=== PATIENT | female | born 1955 | race Caucasian/White ===

== ENCOUNTER 2022-03-12 09:27 | Outpatient (CLI) | payer MEDICARE, SELFPAY ==
--- NOTE | ~2022-03-12 | MM_ITS ---
EXAMINATION: MM screening kev BI w michelle HISTORY: Screening mammogram TECHNIQUE: Craniocaudal and mediolateral oblique 3-D tomosynthesis images were obtained and synthetic 2-D images were generated. CAD analysis was submitted and interpreted. COMPARISON: No prior mammogram is available for comparison at this institution. BREAST PARENCHYMAL COMPOSITION: There are scattered areas of fibroglandular density. FINDINGS: RIGHT BREAST: There is no suspicious mass, calcification, or architectural distortion to suggest jelly gnancy. LEFT BREAST: There is a possible mass in the middle third of the lower-outer breast. IMPRESSION: 1. Possible left breast mass which may represent the patient's baseline however no comparison is curr ently available. 2. Comparison with prior mammograms is necessary. BI-RADS Category 0: Incomplete: Needs comparison with prior mammograms. Reviewed, dictated and finalized at location A. IMPRESSION: 1. Possible left breast mass which may represent the patient's baseline however no comparison is currently available. 2. Comparison with prior mammograms is necessary. BI-RADS Category 0: Incomplete: Needs comparison with prior mammograms.
== END 2022-03-12 09:28 | disposition home or self-care (01) ==
DX: Z12.31 Encounter for screening mammogram for malignant neoplasm of breast (principal); R92.8 Other abnormal and inconclusive findings on diagnostic imaging of breast
CPT/HCPCS: 77063; 77067

== ENCOUNTER 2022-04-17 11:40 | Outpatient (CLI) | payer MEDICARE, SELFPAY ==
--- NOTE | ~2022-04-17 | MMUS_ITS ---
EXAMINATION: MM diagnostic kev LT w michelle, US breast LT limited HISTORY: Possible left breast mass reported in middle third of lower outer left breast on 03/12/2022 s creening mammogram TECHNIQUE: Additional 3-D tomosynthesis images of the left breast were performed and synthetic 2-D im ages were generated. CAD analysis was submitted and interpreted. High resolution left lower outer lisa drant breast ultrasound was performed. COMPARISON: None FINDINGS: MAMMOGRAPHIC FINDINGS: There is an approximately 5 x 9 mm circumscribed opacity in the lower outer quadrant of the left sabrina st in the junction of the anterior and middle thirds of the breast. Otherwise no suspicious mammographic mass, architectural distortion, malignant constipation, skin thi ckening or retraction is detected. ULTRASOUND: 4:00 7 cm from nipple: Parallel circumscribed sonolucency measuring up to approximately 7 mm, consist ent with simple cyst., Likely corresponding to the circumscribed tomographic opacity in the lower out er quadrant 5:00 5 cm from nipple: Parallel circumscribed sonolucency measuring 1.9 x 4 mm. With through transmis dilia, consistent with small cyst. IMPRESSION: 1. Benign cysts; no mammographic evidence of malignancy 2. Routine mammographic screening is recommended. BI-RADS Category 2: Benign finding(s). Reviewed, dictated and finalized at location A. IMPRESSION: 1. Benign cysts; no mammographic evidence of malignancy 2. Routine mammographic screening is recommended. BI-RADS Category 2: Benign finding(s).
== END 2022-04-17 11:41 | disposition home or self-care (01) ==
DX: R92.8 Other abnormal and inconclusive findings on diagnostic imaging of breast (principal); N60.02 Solitary cyst of left breast
CPT/HCPCS: 76642; 77061; 77065; G0279

== ENCOUNTER 2022-07-14 08:02 | Emergency (ER) | payer MEDICARE, SELFPAY ==
[2022-07-14] VITALS (7 sets, daily range): BP systolic 139–163; BP diastolic 58–101; PULSE 64–74; RESP 16–19; TEMP 36.8; O2SAT 97–99
--- NOTE | ~2022-07-14 | CT_ITS ---
EXAMINATION: CT brain wo con DATE: 07/14/2022 08:33 INDICATION: Vertigo. TECHNIQUE: Computed tomography (CT) of the head was performed without intravenous contrast. The mA wa s adjusted according to patient size. Iterative reconstruction technique was employed. The dose-lengt h product was 908.00 mGy-cm. COMPARISON: None FINDINGS: There is no intracranial hemorrhage, acute infarction, or abnormal intracranial mass lesion . The ventricles are normal in size. The orbits are normal. There is mild mucosal thickening in the p aranasal sinuses. The mastoid air cells are normal. IMPRESSION: 1. Normal brain. Reviewed, dictated and finalized at location A. D PERSON IMPRESSION: 1. Normal brain.
--- NOTE | 2022-07-14 08:11 | ECG_ITS ---
Measurements Intervals [place] Rate: 70 P: 57 MN: 187 QRS: -26 QRSD: 144 T: 58 QT: 401 QTc: 433 Interpretive Statements SINUS RHYTHM LEFT BUNDLE BRANCH BLOCK ABNORMAL ECG ] NO PREVIOUS ECG AVAILABLE FOR COMPARISON Electronically Signed On 07-14-2022 15:05:00 FIRE PREVENTION OFFICER by Deni Baugh M.D.
--- NOTE | 2022-07-14 08:13 | ED.DIZZY ---
HPI - Dizziness General Chief Complaint: Dizziness Stated Complaint: vertigo/busby Time Seen by Provider: 07/14/22 08:06 History of Present Illness HPI Narrative: 66-year-old female presenting to the emergency department for evaluation of vertigo. Patient says she woke up this morning she had vertigo from 530 till 630. Patient states the vertigo has resolved. Patient was also concerned she may be having mini strokes because she has been more irate with her . Patient states when her sister is having strokes and she was mean to her . Patient is a type II diabetic. Patient reports she does have some history of vertigo but not recently. Related Data Allergies Allergy/AdvReac Type Severity Reaction Status Date / Time propoxyphene Allergy Unknown Verified 07/14/22 08:21 [From LeighannRadha] Review of Systems Review of Systems: CONSTITUTIONAL: Denies fever, chills, or sweats. EYES: Denies visual changes, redness, or discharge. ENT: Denies rhinorrhea, congestion, sore throat, or otalgia. CARDIOVASCULAR: Denies chest pain, palpitations, or edema. RESPIRATORY: Denies cough or dyspnea. GASTROINTESTINAL: Denies abdominal pain, nausea, vomiting, or diarrhea. GENITOURINARY: Denies dysuria or hematuria. SKIN: Denies rash or itching. MUSCULOSKELETAL: Denies back pain, joint pain, or myalgia. NEUROLOGIC: Denies headache, numbness, or weakness. Does have vertigo Exam Narrative: APPEARANCE: Well appearing, no pain, no distress, well-nourished. HEAD: normocephalic, atraumatic. EYES: PERRLA/EOMI, conjunctivae clear. NOSE: Normal no drainage EARS:TMS clear with good light reflex. THROAT: Pharynx clear, no exudate. NECK: Supple. No adenopathy, no masses. RESPIRATORY: Airway patent, respirations nonlabored. Clear to auscultation bilaterally, no rales, rhonchi, wheezing. CARDIOVASCULAR: Regular rate and rhythm without murmurs rubs or gallops. ABDOMINAL: Soft, nontender, nondistended, normal bowel sounds MUSCULOSKELETAL: Moves all extremities. Strength/ROM intact, No edema, No calf tenderness. NEURO: Alert. Cranial nerves II through XII intact. Grossly intact SKIN: Warm, dry. Normal Color Course Course Emergency Course: Head CT was negative for acute abnormality. Patient did feel improved with meclizine. Patient has a normal comprehensive neuro exam. Patient had no vertigo while ambulating. Patient had no evidence of urinary tract infection. Patient's COVID and influenza were also negative. Patient was updated on the results of her diagnosis of vertigo and was provided meclizine for outpatient treatment. Patient was also suggested to have neurology follow-up. All questions and concerns were addressed. Vital Signs Vital signs: Vital Signs Temperature 98.2 F 07/14/22 08:11 Pulse Rate 74 07/14/22 08:11 Respiratory Rate 18 07/14/22 08:11 Blood Pressure 163/101 H 07/14/22 08:11 Pulse Oximetry 99 07/14/22 08:11 Oxygen Delivery Room Air 07/14/22 08:11 Temperature 98.2 F 07/14/22 08:11 Pulse Rate 64 07/14/22 11:15 Respiratory Rate 19 07/14/22 11:15 Blood Pressure 154/58 H 07/14/22 11:15 Pulse Oximetry 99 07/14/22 11:15 Oxygen Delivery Room Air 07/14/22 08:11 MDM - Dizziness Lab Data 07/14/22 08:20 07/14/22 08:20 Labs: Lab Results 07/14/22 07/14/22 07/14/22 Range/Units 08:20 08:20 08:20 WBC 8.2 (4.5-10.0) K/mm3 RBC 5.39 (4.2-5.4) M/mm3 Hgb 15.5 H (12.0-15.0) g/dL Hct 46.3 (37.0-47.0) % MCV 85.9 (80-100) fl MCH 28.8 (26-34) pg MCHC 33.5 (32-36) g/dl RDW 14.1 (11.5-14.5) % Plt Count 266 (150-375) k/mm3 MPV 9.3 (7.4-10.4) fl Immature Gran % (Auto) 0.4 (0-0.5) % Neut % (Auto) 65.6 (45.5-73.1) % Lymph % (Auto) 26.6 (18.3-44.2) % [place] % (Auto) 5.9 (2.6-8.5) % Eos % (Auto) 0.9 (0-4.4) % Baso % (Auto) 0.6 (0.2-1.2) % Lymph # (Auto) 2.18 (0.9-3.2) K/mm3 [place] # (Au
[2022-07-14 08:27] LABS: Basophils Absolute Auto 0.1 K/mm3 (0.0-0.1); Basophils Percent Auto 0.6 % (0.2-1.2); Eosinophils Absolute Auto 0.1 K/mm3 (0-0.3); Eosinophils Percent Auto 0.9 % (0-4.4); Hematocrit 46.3 % (37.0-47.0); Hemoglobin 15.5 g/dL (12.0-15.0); Immature Granulocyte Absolute 0.03 K/mm3 (0.00-0.031); Immature Granulocyte Percent A 0.4 % (0-0.5); Lymphocytes Absolute Auto 2.18 K/mm3 (0.9-3.2); Lymphocytes Percent Auto 26.6 % (18.3-44.2); Mean Corpuscular HGB Conc 33.5 g/dl (32-36); Mean Corpuscular Hemoglobin 28.8 pg (26-34); Mean Corpuscular Volume 85.9 fl (80-100); Mean Platelet Volume 9.3 fl (7.4-10.4); Monocytes Absolute Auto 0.5 K/mm3 (0.1-0.6); Monocytes Percent Auto 5.9 % (2.6-8.5); Neutrophils Absolute Auto 5.4 K/mm3 (1.3-6.7); Neutrophils Percent Auto 65.6 % (45.5-73.1); Platelet Count Result 266 k/mm3 (150-375); Red Blood Count 5.39 M/mm3 (4.2-5.4); Red Cell Distribution Width 14.1 % (11.5-14.5); White Blood Count 8.2 K/mm3 (4.5-10.0)
[2022-07-14 08:36] LABS: Alanine Aminotransferase 28 U/L (6-35); Albumin Level 4.8 g/dL (3.5-5.1); Alkaline Phosphatase 90 U/L (38-126); Anion Gap 8 mmol/L (8-16); Aspartate Amino Transferase 22 U/L (14-36); Bilirubin,Total 0.4 mg/dL (0.2-1.3); Blood Urea Nitrogen 13 mg/dL (7-17); Calcium 9.4 mg/dL (8.4-10.2); Carbon Dioxide 29 mmol/L (22-30); Chloride 105 mmol/L (98-107); Estimated CRCL calculation 105 ml/min; Estimated Glomerular Filt Rate > 60; Glucose 148 mg/dL (65-110); Sodium 142 mmol/L (137-145)
[2022-07-14 08:39] LABS: Partial Thromboplastin Time 29.2 SECONDS (22.3-36.8)
[2022-07-14 09:04] LABS: Influenza A QL RT-PCR Negative (Negative); Influenza B QL RT-PCR Negative (Negative); SARS-CoV-2 RNA PCR Negative
[2022-07-14 10:22] LABS: Appearance Urine Clear (Clear); Bilirubin Urine Negative (Negative); Blood Urine Trace-intact (Negative); Color Urine Yellow (Yellow); Glucose Urine UA 3+ mg/dL (Negative); Ketones Urine Trace mg/dL (Negative); Leukocyte Esterase Ur Negative LEU/UL (Negative); Nitrate Urine Negative (Negative); Protein Urine Negative (Negative); Urobilinogen Urine 0.2 mg/dL (<2.0); pH Urine 5.5 (5.0-9.0)
[2022-07-14 10:37] LABS: Bacteria Urine Trace /hpf; Mucus Urine Rare /lpf; RBC Urine 0-2 /hpf (0-2); Squamous Epithelial Cell Urine Moderate /hpf (Few); Transitional Epi Cells Urine Rare /hpf (None Seen)
[2022-07-14 10:38] LABS: Add Urine Microscopic? YES
[2022-07-14] MEDS: MECLIZINE HCL 25 MG TABLET PO (10:42)
== END 2022-07-14 11:18 | disposition home or self-care (01) ==
PROVIDERS: Emergency Provider Emergency Medicine
DX: H81.10 Benign paroxysmal vertigo, unspecified ear (principal); E11.9 Type 2 diabetes mellitus without complications; Z20.822 Contact with and (suspected) exposure to COVID-19; R82.998 Other abnormal findings in urine; I44.7 Left bundle-branch block, unspecified
CPT/HCPCS: 36415; 70450; 80053; 81001; 85025; 85610; 85730; 87086; 87088; 87636; 93005; 99284; A9270

== ENCOUNTER → 2022-12-23 09:04 | Outpatient (CLI) | payer MEDICARE, SELFPAY ==
--- NOTE | ~2022-12-23 | MR_ITS ---
EXAMINATION: MR brain/brain stem wo con DATE: 12/23/2022 10:03 INDICATION: Lightheadedness. Dizziness. TECHNIQUE: Magnetic resonance imaging (MRI) of the brain and brainstem was performed without intraven ous contrast. COMPARISON: Head CT 07/14/2022 FINDINGS: There are scattered areas of nonspecific increased T2-weighted signal intensity in the cere bral white matter, which is within normal limits for the patient's age. There is no intracranial hemo rrhage, acute infarction, or abnormal intracranial mass lesion. The ventricles are normal in size. Th e paranasal sinuses are clear. The orbits are normal. The mastoid air cells are normal. IMPRESSION: 1. Normal aging brain. Reviewed, dictated and finalized at location A. IMPRESSION: 1. Normal aging brain.
--- NOTE | ~2022-12-23 | CT_ITS ---
EXAMINATION: CTA brain carotid DATE: 12/23/2022 10:05 INDICATION: Lightheadedness. Dizziness. Syncope. TECHNIQUE: Computed tomographic angiography (CTA) of the head was performed without and with 100 mL O mnipaque-350 intravenous contrast. CTA of the neck was performed with intravenous contrast. Automated exposure control and iterative reconstruction technique were employed. The dose-length product was 1 659.26 mGy-cm. Maximum intensity projection and volume rendered 3D-reconstructions were created by jung vaughn technologist on a separate workstation. COMPARISON: Head CT 07/14/2022, brain MRI 12/23/2022 FINDINGS: HEAD CTA: There is no intracranial hemorrhage, acute infarction, or abnormal intracranial mass lesion . The ventricles are normal in size. The mastoid air cells are normal. The paranasal sinuses are patricio r. The orbits are normal. The vertebral arteries are codominant. There is no significant stenosis of basilar artery or the posterior cerebral arteries. There is no significant stenosis of the intracrani al internal carotid arteries or anterior or middle cerebral arteries. Anterior communicating artery i s normal. The posterior communicating arteries are normal. There is no aneurysm. NECK CTA: There are no pathologically enlarged lymph nodes. There is no significant stenosis of the v ertebral arteries. There is mild plaque in the proximal internal carotid arteries. There is 0% stenos is of the proximal right internal carotid artery relative to normal distal artery lumen diameter (NANCY CET criteria). There is 0% stenosis of the proximal left internal carotid artery relative to normal d istal artery lumen diameter. There is mild cervical spondylosis. IMPRESSION: 1. Normal brain. 2. No aneurysm or significant intracranial arterial stenosis. 3. 0% stenosis of the proximal internal carotid arteries relative to normal distal artery lumen diame ters (NASCET criteria). Reviewed, dictated and finalized at location A. IMPRESSION: 1. Normal brain. 2. No aneurysm or significant intracranial arterial stenosis. 3. 0% stenosis of the proximal internal carotid arteries relative to normal dis macho artery lumen diameters (NASCET criteria).
[2022-12-23 09:28] LABS: Estimated Glomerular Filt Rate > 60
== END ==
PROVIDERS: PCP Student in an Organized Health Care Education/Training Program; Visit Provider Student in an Organized Health Care Education/Training Program
DX: R42 Dizziness and giddiness (principal)
CPT/HCPCS: 70496; 70498; 70551; Q9967

== ENCOUNTER 2023-01-21 10:15 | Outpatient (RCR) | payer MEDICARE, SELFPAY ==
--- NOTE | 2022-12-22 14:46 | PTOPEVAL1 ---
Assessment and note entered by Carolin Estrada, PT Evaluation Information Assessment Status Evaluation Diagnosis vertigo Onset Jul 2022 Subjective Information to ER Jul due to dizziness- brain CT negative; saw neurologist- going to have MRI of head and neck; going to make appointment with wick and base assembler; saw ENT- have flonase for allergies; took meclazine- did not help, just made her sleepy; adding salt to her diet has not changed anything. no changes in meds except added sertraline; she checks her blood sugar every AM; wear contacts - does OK with reading and watching TV; vitals at rest/ sitting: HR 110/ BP 121/49; later in appt: 140/87, 84 symptoms: spinning, eyes crossing, fullness of both ears increase symptoms with: sit to stand quickly; decrease symptom: hold still/ sit still Have not had any falls in the past 6 months. Reported Pain Level Pain Score 0: Self Report Assessment PT Clinical Summary Verenice has the diagnosis of vestibular rehab/ BPPV. She has multiple risk factors for vestibular issues: nasal congestion/allergies, diabetes, multiple meds. She went to ER July due to waking up with dizziness. Testing so far has been negative: hearing, CT brain; has been to ENT, neurologist and needs to schedule with cardiology. With the testing: Innis Rajput pike to the R, sitting eye tracking up/down and gaze stabilization with head motions R/L caused her slight dizziness. No nystagmus was elicited. There was some variance with her HR and BP: 121/49, 110 and later 140/87, 84. Education provided to pt on: basic vestibular system, BPPV, causes of dizziness with handouts issued. Skilled PT services are indicated for vestibular rehab. Plan of Care Interventions Neuro Re-education,Patient/Caregiver Education, Therapeutic Activities,Therapeutic Exercise PT Services Indicated Yes Treatment Frequency and 1-2x/wk for 5 weeks, depending upon her symptoms Duration
--- NOTE | 2022-12-22 14:47 | PCPTNOTE ---
pt was 15 minutes late for initial evaluation, went to wrong place.
--- NOTE | 2022-12-22 16:37 | OPREHPOC ---
Outpatient Therapy Plan of Care This is a Multidisciplinary Plan of Care that may contain components documented by all disciplines (PT, OT, and ST.) PT Problem 1 PT Problem #1 Knowledge Deficit PT Goal 1 Goal pt able to state safety precautions to manage any vestibular s/s PT Problem 2 PT Problem #2 Impaired Vestibular Syste PT Goal 1 Goal pt able to perform without any vestibular symptoms : 1* sit to stand transfer 2* standing eye tracking 20x up/down 3* standing gaze stabilization 20x, with head motion R/L 4* further assessment of the vestibular system as indicated
--- NOTE | 2023-02-02 13:03 | PTOPDC ---
Assessment and note entered by Carolin Estrada, PT Evaluation Information Assessment Status Discharge - Pt Not Present Diagnosis vertigo Onset Jul 2022 Assessment PT Clinical Summary Verenice has received 4 PT sessions, from December 22 to January 21. She then stopped attending therapy, therefore she will be discharged at this time. The goals were not addressed. Plan of Care PT Services Indicated No
== END 2023-02-04 12:09 | disposition home or self-care (01) ==
LOC: ANHPT 10:15
PROVIDERS: Visit Provider Otolaryngology
DX: H81.10 Benign paroxysmal vertigo, unspecified ear (principal)
CPT/HCPCS: 97110; 97162; 97530

== ENCOUNTER 2023-04-11 20:00 | Inpatient (IN) | payer MEDICARE, SELFPAY ==
[2023-04-11] VITALS (14 sets, daily range): BP systolic 107–183; BP diastolic 42–108; PULSE 29–82; RESP 12–23; TEMP 36.5–36.9; O2SAT 95–99; BMI 38.9
--- NOTE | ~2023-04-11 | XR_ITS ---
EXAMINATION: XR chest 1V portable DATE: 04/14/2023 12:01 INDICATION: Pacer placement. TECHNIQUE: A single frontal view of the chest was obtained. COMPARISON: Chest single view 04/13/2023 FINDINGS: There is mild atelectasis at the lung bases. No pleural effusion or pneumothorax. The heart size is normal. There is a left chest wall pacer with leads in the right atrium and right ventricle. IMPRESSION: 1. Mild atelectasis at the lung bases. Reviewed, dictated and finalized at location A.
--- NOTE | ~2023-04-11 | XR_ITS ---
EXAMINATION: XR chest 1V portable DATE: 04/13/2023 14:55 INDICATION: Pacer placement. TECHNIQUE: A single frontal view of the chest was obtained. COMPARISON: Chest view 04/11/2023 FINDINGS: There is no pneumonia, pleural effusion, or pneumothorax. The heart size is normal. There i s a left chest pacer with leads in right atrium and right ventricle. IMPRESSION: 1. No acute cardiopulmonary disease. Reviewed, dictated and finalized at location A.
--- NOTE | ~2023-04-11 | XR_ITS ---
EXAMINATION: XR chest 1V portable Exam Date/Time: 04/11/2023 20:20 CDT HISTORY: Bradycardia PATIENT WEARING A MONITOR AND PCP Comparison: None. RESULT: Lines, tubes, and devices: Electronic device projects over the left chest. Lungs and pleura: Clear. Cardiomediastinal silhouette: Stable. Other: No acute osseous or upper abdominal finding. IMPRESSION: No acute cardiopulmonary process. Reviewed, dictated and finalized at location K.
--- NOTE | 2023-04-11 20:01 | ECG_ITS ---
Measurements Intervals [place] Rate: 46 P: 72 OK: 205 QRS: -32 QRSD: 158 T: 51 QT: 445 QTc: 389 Interpretive Statements SINUS RHYTHM WITH SECOND DEGREE AV BLOCK, TYPE II (3:1 AV BLOCK) VENTRICULAR PREMATURE COMPLEX LEFT BUNDLE BRANCH BLOCK ABNORMAL ECG COMPARED TO ECG 07/14/2022 08:17:28 SECOND DEGREE AV BLOCK NOW PRESENT Electronically Signed On 04-12-2023 7:03:21 CDT by Bruce Garcia D.O.
[2023-04-11 20:25] LABS: Basophils Percent Auto 0.3 % (0.2-1.2); Eosinophils Absolute Auto 0.1 K/mm3 (0-0.3); Eosinophils Percent Auto 0.7 % (0-4.4); Hemoglobin 13.4 g/dL (12.0-15.0); Immature Granulocyte Absolute 0.02 K/mm3 (0.00-0.031); Immature Granulocyte Percent A 0.2 % (0-0.5); Lymphocytes Absolute Auto 2.09 K/mm3 (0.9-3.2); Lymphocytes Percent Auto 20.9 % (18.3-44.2); Mean Corpuscular HGB Conc 32.7 g/dl (32-36); Mean Corpuscular Hemoglobin 27.1 pg (26-34); Mean Platelet Volume 9.8 fl (7.4-10.4); Monocytes Absolute Auto 0.6 K/mm3 (0.1-0.6); Monocytes Percent Auto 5.9 % (2.6-8.5); Neutrophils Absolute Auto 7.2 K/mm3 (1.3-6.7); Platelet Count Result 251 k/mm3 (150-375); Red Blood Count 4.94 M/mm3 (4.2-5.4); Red Cell Distribution Width 15.2 % (11.5-14.5)
--- NOTE | 2023-04-11 20:28 | ED.GENADULT ---
HPI - General Adult General Chief complaint: Chest Pain Stated complaint: HEART BLOCK History of Present Illness HPI narrative: This is a 67-year-old female, with past history of hyperlipidemia, diabetes, brought in by EMS had recommendation from her spot checker for complete heart block seen on a Holter monitor. The patient states for the past day, she has felt overall fatigued with malaise. She has received multiple calls from her Holter monitoring company that she has bradycardia and complete heart block. The patient denies chest pain, shortness of breath or loss of consciousness. I received notification from the patient's spot checker, Dr. Hill who is also informed of episodes of long pauses and third-degree heart block on her gambling monitor. Related Data Home Medications Medication Instructions Recorded Confirmed aspirin 81 mg tablet,delayed 81 mg PO HS 12/18/22 04/11/23 release atorvastatin 20 mg tablet 20 mg PO HS 12/18/22 04/11/23 empagliflozin 25 mg tablet 25 mg PO HS 12/18/22 04/11/23 (Jardiance) insulin degludec 200 unit/mL (3 50 unit subcut HS 12/18/22 04/11/23 mL) subcutaneous pen (Tresiba FlexTouch U-200 insulin) levothyroxine 125 mcg tablet 125 mcg PO HS 12/18/22 04/11/23 (Synthroid) semaglutide 2 mg/dose (8 mg/3 mL) 2 mg subcut WEEKLY 12/18/22 04/11/23 subcutaneous pen injector (Ozempic) sertraline 100 mg tablet 100 mg PO HS 12/18/22 04/11/23 Allergies Allergy/AdvReac Type Severity Reaction Status Date / Time propoxyphene Allergy Unknown Unknown Verified 04/11/23 22:13 [From Yassine] Review of Systems Review of Systems: CONSTITUTIONAL: Generalized fatigue denies fever, chills, or sweats. CARDIOVASCULAR: Denies chest pain, palpitations, or edema. RESPIRATORY: Denies cough or dyspnea. GASTROINTESTINAL: Denies abdominal pain, nausea, vomiting, or diarrhea. GENITOURINARY: Denies dysuria or hematuria. SKIN: Denies rash or itching. MUSCULOSKELETAL: Denies back pain, joint pain, or myalgia. NEUROLOGIC: Denies headache, numbness, dizziness, or weakness. PSYCHIATRIC: Denies anxiety or depression. PMFSH Past Medical History Medical History (Updated 04/11/23 @ 22:29 by Darrian Pearce MD) Diabetes Hyperlipidemia Thyroid disorder Surgical History Surgical History Bariatric surgery status H/O: hysterectomy Family History Family History Father Diabetes mellitus Hypertension Heart disease Mother Ovarian cancer Sibling Diabetes mellitus Cerebrovascular accident Grandparent Breast cancer Social History Social History Smoking status: Never smoker Second hand tobacco smoke exposure: No Alcohol intake: current Alcohol use details: Rarely Substance use: never Substance use type: does not use Lack of Transportation: No Lack of Food: Never True Current Housing: I Have Housing Concerned About Future Housing: No Difficulty Paying Gas/Electric Bills: No Difficulty Paying for Meds: No Currently Unemployed: No Education: Master's Degree or Higher Difficulty w/ Childcare or Family Care: No Living arrangements: with family Exam Narrative: GENERAL: Well-developed, well-nourished, and in no acute distress. HEAD: Normocephalic, atraumatic. EYES: PERRLA and EOMI. ENT: Nares clear, no rhinorrhea or epistaxis. Mucous membranes moist. Oropharynx without tonsillar hypertrophy exudate or other lesions. NECK: Supple. No JVD CHEST: Clear to auscultation. No respiratory distress. No wheezes rales or rhonchi HEART: Bradycardic with regular rhythm. No murmur heard. Normal peripheral pulses. ABDOMEN: Soft, nontender, nondistended, normal active bowel sounds. EXTREMITIES: Normal range of motion. No edema. SKIN: Warm, dry, no rash. NEURO: Alert and oriented x3. Moving
[2023-04-11] MEDS: DOPamine 400 MG/D5W 250 ML 400 MG/250 ML BAG 9.67 MG IV CONT (20:33)
[2023-04-11 20:34] LABS: Alanine Aminotransferase 19 U/L (6-35); Albumin Level 3.9 g/dL (3.5-5.1); Alkaline Phosphatase 79 U/L (38-126); Anion Gap 9 mmol/L (8-16); Aspartate Amino Transferase 19 U/L (14-36); Bilirubin,Total 0.3 mg/dL (0.2-1.3); Blood Urea Nitrogen 15 mg/dL (7-17); Calcium 8.8 mg/dL (8.4-10.2); Carbon Dioxide 23 mmol/L (22-30); Chloride 107 mmol/L (98-107); Estimated CRCL calculation 86 ml/min; Estimated Glomerular Filt Rate > 60; Glucose 208 mg/dL (65-110); Magnesium 2.1 mg/dL (1.6-2.3); Potassium 3.6 mmol/L (3.4-5.0); Sodium 139 mmol/L (137-145)
[2023-04-11 20:43] LABS: Prothrombin Time 13.3 Seconds (11.1-14.7)
[2023-04-11 20:46] LABS: Troponin I < 0.012 ng/mL (0.000-0.034)
[2023-04-11] MEDS: ACETAMINOPHEN 500 MG TABLET 1000 MG PO (21:20)
[2023-04-11 21:31] LABS: Thyroid Stimulating Hormone Reflex 0.545 uIU/mL (0.465-4.68)
[2023-04-11] MEDS: ONDANSETRON HCL ODT 4 MG TABLET PO (21:35)
[2023-04-11] MEDS: SODIUM CHLORIDE 0.9% IV 1,000 ML 150 ML IV CONT (21:35)
--- NOTE | 2023-04-11 21:38 | PC.NURSE ---
Patient vomiting, EPR notified. Orders being placed.
[2023-04-11] MEDS: ONDANSETRON INJ 4 MG/2 ML VIAL IV PUSH (21:40)
--- NOTE | 2023-04-11 22:07 | PC.NURSE ---
This patient, Verenice Palacios, was admitted to Intensive Care Unit-9. Patient/family oriented to hospital policies and general routines including ID bracelet, bed and alarms, visiting hours, pain management, procedures, bathroom and other care routines, personal items, smoking policy, room service/diet, and visiting hours. Information on how to activate the Rapid Response Team has been discussed. Patient/Family are encouraged to report perceived risks to care and to ask questions if they do not understand what they are told or what they should do.
--- NOTE | 2023-04-11 22:23 | PM.IMHP ---
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 The patient reports that in November she was eating rate to go get her hair done when she had a syncopal episode behind the wheel. She followed up with her primary care provider that weak and went to a process of elimination by seeing your nose and throat doctor, neurologist and economic manager. She recently saw Dr. Molly Carter as outpatient and had Holter monitor placed within last 2 weeks. She reported that she felt like she was in her usual state of health until today. Today she did not really get out of bed because she felt so fatigued. She was having episodes of severe diaphoresis. She denies any chest pain or palpitations. She was notified by her economic manager that her Holter monitor was demonstrating at third-degree heart block and she was directed to come into the ER. Patient also reports he has been short of breath which also started today. She denies any lower extremity swelling or orthopnea. She is obese and does have chronic snoring. She has never had a sleep study. Her friend who was a nurse sales technician his has told her in the past she needs a sleep study. She has had a 16 lb weight loss due to an increase in her Ozempic within the last 2 months. She does have type 2 diabetes and reports her last A1c was around 7.3. She is not on any rate or rhythm controlling medications. Review of Systems Review of Systems: 12 systems were reviewed with pertinent positives and negatives per HPI. Except as documented in the HPI, all other systems were reviewed and are negative. Her fasting glucoses have been between 90 and 120. [facility] Past Medical History Medical History (Updated 04/11/23 @ 23:46 by Chari Allen DO) BPPV (benign paroxysmal positional vertigo) Cataract Maturing cataracts Diabetes Diabetic peripheral neuropathy Hyperlipidemia Hypothyroidism Obesity (BMI 30-39.9) Surgical History Surgical History (Updated 04/11/23 @ 23:43 by Chari Allen DO) History of esophagogastroduodenoscopy (~2009) History of laparoscopic adjustable gastric banding Placed in 2006 and removed in 2009 due to slippage History of total hysterectomy with bilateral salpingo-oophorectomy (BSO) (~2012) Normal colonoscopy (~2009) Family History Family History Father Diabetes mellitus Heart disease Hypertension Mother Uterine cancer Sibling Diabetes mellitus Cerebrovascular accident Heart disease Grandparent Breast cancer Social History Social History (Updated 04/11/23 @ 23:36 by Chari Allen DO) Social History: The patient got for the 1st time 5 years ago. 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 She has 3 dogs at home. She denied ever had any children. She is a lifelong nonsmoker. She rarely drinks alcohol and only in small amounts. She denies any illicit substance use history. Code status: Full code Surrogate decision maker: Smoking status: Never smoker Second hand tobacco smoke exposure: No Alcohol intake: current Alcohol use details: Rarely Substance use: never Substance use type: does not use Lack of Transportation: No Lack of Food: Never True Current Housing: I Have Housing Concerned About Future Housing: No Difficulty Paying Gas/Electric Bills: No Difficulty Paying for Meds: No Currently Unemployed: No Education: Master's Degree or Higher Difficulty w/ Childcare or Family Care: No Living arrangements: with family Spiritual care concerns: No Meds Home Medications and Allergies Home Medications Medication Instructions Rec
[2023-04-11] MEDS: LEVOTHYROXINE SODIUM 125 MCG TABLET PO (23:30)
[2023-04-11] MEDS: ASPIRIN 81 MG ENTERIC TABLET PO (23:30)
[2023-04-11] MEDS: ATORVASTATIN 20 MG TABLET PO (23:30)
[2023-04-11] MEDS: SERTRALINE HCL 50 MG TABLET 100 MG PO (23:30)
[2023-04-11] MEDS: EMPAGLIFLOZIN 25 MG TABLET PO (23:31)
[2023-04-11 23:41] LABS: Glucose Point of Care 193 mg/dl (65-105)
[2023-04-12] VITALS (24 sets, daily range): BP systolic 107–170; BP diastolic 45–87; PULSE 31–90; RESP 15–22; TEMP 36.3–37.2; O2SAT 93–97
[2023-04-12] MEDS: ACETAMINOPHEN 325 MG TABLET 650 MG PO ×3 (02:38→21:40)
[2023-04-12 04:01] LABS: Basophils Percent Auto 0.3 % (0.2-1.2); Eosinophils Percent Auto 0.3 % (0-4.4); Hematocrit 40.3 % (37.0-47.0); Hemoglobin 13.1 g/dL (12.0-15.0); Immature Granulocyte Absolute 0.03 K/mm3 (0.00-0.031); Immature Granulocyte Percent A 0.2 % (0-0.5); Lymphocytes Absolute Auto 2.23 K/mm3 (0.9-3.2); Lymphocytes Percent Auto 16.5 % (18.3-44.2); Mean Corpuscular HGB Conc 32.5 g/dl (32-36); Mean Corpuscular Hemoglobin 27.1 pg (26-34); Mean Corpuscular Volume 83.4 fl (80-100); Mean Platelet Volume 9.5 fl (7.4-10.4); Monocytes Absolute Auto 0.8 K/mm3 (0.1-0.6); Monocytes Percent Auto 5.5 % (2.6-8.5); Neutrophils Absolute Auto 10.5 K/mm3 (1.3-6.7); Neutrophils Percent Auto 77.2 % (45.5-73.1); Platelet Count Result 275 k/mm3 (150-375); Red Blood Count 4.83 M/mm3 (4.2-5.4); Red Cell Distribution Width 15.1 % (11.5-14.5); White Blood Count 13.6 K/mm3 (4.5-10.0)
[2023-04-12 04:12] LABS: Anion Gap 11 mmol/L (8-16); Blood Urea Nitrogen 13 mg/dL (7-17); Calcium 8.6 mg/dL (8.4-10.2); Carbon Dioxide 22 mmol/L (22-30); Chloride 109 mmol/L (98-107); Estimated CRCL calculation 85 ml/min; Estimated Glomerular Filt Rate > 60; Glucose 165 mg/dL (65-110); Potassium 3.7 mmol/L (3.4-5.0); Sodium 142 mmol/L (137-145)
[2023-04-12] MEDS: DOPamine 400 MG/D5W 250 ML 400 MG/250 ML BAG 22.46 MG IV CONT ×2 (08:32→21:31)
--- NOTE | 2023-04-12 08:32 | PC.NURSE ---
Dopamine gtt reordered and continued at previous rate
--- NOTE | 2023-04-12 09:43 | WPDCNINT ---
Assessment and Plan Assessment and plan (1) Third degree heart block: Code(s): I44.2 - Atrioventricular block, complete Status: Acute Assessment and Plan: Patient had episode in November 2022, had a Holter monitor placed which showed complete heart block, ring striker had called of patient to come to the ER to get evaluated. He had GI EKG confirmed complete heart block, blood pressures were stable so patient was started on dopamine. Currently asymptomatic -appreciate cardiology evaluation -patient will require a permanent pacemaker which will be implanted on 04/13/2023 -echocardiogram showed normal LV with inferior wall hypokinesis per cardiology note -continue dopamine infusion for now (2) Diabetes: Qualifiers: Diabetes mellitus complication detail: with polyneuropathy Diabetes mellitus complication status: with neurologic complications Diabetes mellitus long distance operator insulin use: with long distance operator use Diabetes mellitus type: type 2 Qualified Code(s): E11.42 - Type 2 diabetes mellitus with diabetic polyneuropathy; Z79.4 - group home (current) use of insulin Code(s): E11.9 - Type 2 diabetes mellitus without complications Status: Acute Assessment and Plan: Continue oral hypoglycemics and sliding scale insulin (3) Thyroid disorder: Code(s): E07.9 - Disorder of thyroid, unspecified Status: Acute Assessment and Plan: Continue levothyroxine Plan DVT prophylaxis: Lovenox, Stress ulcer prophylaxis: Not indicated Nutrition: Clear liquid diet Code Status: Full code Critical Care Time Spent: 49 minutes Discussed with cardiology Due to a high probability of clinically significant, life threatening deterioration, the patient required my highest level of preparedness to intervene emergently and I personally spent this critical care time directly and personally managing the patient. This critical care time included obtaining a history; examining the patient; pulse oximetry; ordering and review of studies; arranging urgent treatment with development of a management plan; evaluation of patient's response to treatment; frequent reassessment; and discussions with other providers. It was exclusive of separately billable procedures and treating other patients and teaching time. Please see Assessment and Plan section and the rest of the note for further information on patient assessment and treatment This dictation may have been done utilizing a voice recognition system. Attempts have been made to correct errors. However, there may be uncorrected grammatical, spelling, and recognitions errors present. Billing And Accounting Staff Assistant Consult Note Consult date: 04/12/23 Reason for consult: Complete heart block on dopamine, pacer pads, episode of syncope and lightheadedness HPI: Verenice Palacios is a 67 year old female past medical history of hyperlipidemia, diabetes, hypothyroidism presented the ED on 04/11/2023 after she was instructed by her ring striker to visit the ER since the Holter monitor read as complete heart block. She has been feeling fatigue with malaise for the last 2 days prior to admission, she also received multiple calls from the Holter monitoring complain that she has bradycardia and complete heart block. Patient denies any chest pain, shortness of breath, abdominal pain, nausea, vomiting, loss of consciousness. She did complain of some lightheadedness. In the ER patient's EKG showed complete heart block. Cardiology was consulted and the case was discussed with Cardiology. They recommended starting dopamine and monitor in the ICU. Patient's CBC and CMP were unremarkable INR of 1.0. Electrolytes within normal limits, creatinine 0.6. Chest x-ray with no acute cardiopulmonary process Patient was placed on dopamine infusion and transferred to the ICU for further management 04/12/2023: Patient seen and examined in the ICU this morning, is awake, alert, oriented x3, answers to questions appropriatel
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
--- NOTE | 2023-04-12 10:38 | PM.IMPN ---
Progress Note: A&P Assessment and Plan (1) Third degree heart block: Code(s): I44.2 - Atrioventricular block, complete Status: Acute (2) Diabetes: Qualifiers: Diabetes mellitus type: type 2 Diabetes mellitus shellac polisher insulin use: with shellac polisher use Diabetes mellitus complication status: with neurologic complications Diabetes mellitus complication detail: with polyneuropathy Qualified Code(s): E11.42 - Type 2 diabetes mellitus with diabetic polyneuropathy; Z79.4 - actuarial intern (current) use of insulin Code(s): E11.9 - Type 2 diabetes mellitus without complications Status: Acute (3) Thyroid disorder: Code(s): E07.9 - Disorder of thyroid, unspecified Status: Acute Plan The patient has newly identified third-degree heart block. Patient has been admitted to the ICU and is on a dopamine drip. The patient's heart rate is still periodically dropping to 29. Dopamine drip has been increased to 6. Pacer pads are in place. Cardiology has been consulted. Patient will be NPO at midnight for possible pacemaker placement however given that it is the weekend pacemaker placement may be delayed. The patient does have relatively well controlled diabetes historically. Her fasting glucoses have decreased since her was in PICC was increased 2 weeks ago. Her glucoses were elevated in the ER but she had not had her insulin for the day. Patient has been placed on a lower dose of her long-acting insulin this evening as she is NPO. Will continue patient on sliding scale insulin with Accu-Cheks q.6 hours while NPO. Hypoglycemia protocol has also been ordered. Patient does report frequent naps and episodes of snoring. She has a crowded posterior oropharynx and BMI greater than 30. She has an increased risk of obstructive sleep apnea which can be contributing to her cardiac rhythm issues. Will order an ApneaLink. Patient would benefit from outpatient sleep study on discharge. Patient has been admitted as observation status. 45 minute spent in critical care activities Due to a high probability of clinically significant, life threatening deterioration, the patient required my highest level of preparedness to intervene emergently and I personally spent this critical care time directly and personally managing the patient. This critical care time included obtaining a history; examining the patient; pulse oximetry; ordering and review of studies; arranging urgent treatment with development of a management plan; evaluation of patient's response to treatment; frequent reassessment; and discussions with other providers. It was exclusive of separately billable procedures and treating other patients and teaching time. Please see Assessment and Plan section and the rest of the note for further information on patient assessment and treatment. Subjective Date/time seen: 04/12/23 10:38 Interval history: no complaints Exam Narrative: General: Patient is awake, alert, pleasant, not in any distress HEENT:? Pupils are equal and reactive, sclera is clear, Neck:? Supple clear to auscultation bilaterally, S1-S2 is normal, no wheezing, adequate air entry Cardiac:? Complete all block with rates in the 50s to 60s with occasional dips in the upper 20s to mid 30s Extremities:? Trace edema, palpable pedal pulses Neuro:? Patient is awake, alert, oriented sitting on nonfocal Skin:? Warm and dry Psych:? Normal mentation and affect Objective Data Vital Signs Vital Signs: Vital Signs - 24 hr 04/11/23 19:58 04/11/23 20:11 04/11/23 20:13 Temperature 98.5 F Pulse Rate 60 78 Respiratory Rate 20 Blood Pressure 138/46 L Pulse Oximetry 98 99 Oxygen Delivery Room Air Room Air 04/11/23 20:33 04/11/23 20:13 04/11/23 20:33 Temperature Pulse Rate 54 L 74 60 Respiratory Rate 12 22 H Blood Pressure 123/79 138/46 L 123/79 Pulse Oximetry 99 Oxygen Delivery 04/11/23 20:53 04/11/23 21:07 04/11/23 20:43
[2023-04-12] MEDS: ENOXAPARIN 40 MG/0.4 ML SYRINGE SUB-Q (11:58)
[2023-04-12 12:03] LABS: Glucose Point of Care 153 mg/dl (65-105)
--- NOTE | 2023-04-12 16:17 | PC.NURSE ---
Dr. Willis updated on HR. New orders given.
--- NOTE | 2023-04-12 16:54 | PC.NURSE ---
Dr. Grullonly notified of bladder scan results. New orders placed.
[2023-04-12 17:20] LABS: Glucose Point of Care 137 mg/dl (65-105)
[2023-04-12 17:33] LABS: Appearance Urine Cloudy (Clear); Bacteria Urine 3+ /hpf; Bilirubin Urine Negative (Negative); Blood Urine Negative (Negative); Color Urine Yellow (Yellow); Glucose Urine UA 3+ mg/dL (Negative); Ketones Urine 1+ mg/dL (Negative); Leukocyte Esterase Ur Trace LEU/UL (Negative); Need Manual Microscopic Reviewed; Nitrate Urine Negative (Negative); Protein Urine Negative (Negative); Specific Grav Ur 1.029 (1.001-1.035); Squamous Epithelial Cell Urine Moderate /hpf (Few); Urobilinogen Urine 0.2 mg/dL (<2.0); WBC Urine 21-50 /hpf
[2023-04-12 17:34] LABS: Add Urine Microscopic? YES
--- NOTE | 2023-04-12 17:40 | PC.NURSE ---
Attempted to contact Dr. Moise via telephone for update on patient status.
[2023-04-12] MEDS: DOPamine 400 MG/D5W 250 ML 400 MG/250 ML BAG 29.94 MG IV CONT (18:31)
[2023-04-12] MEDS: SERTRALINE HCL 50 MG TABLET 100 MG PO (21:23)
[2023-04-12] MEDS: EMPAGLIFLOZIN 25 MG TABLET PO (21:24)
[2023-04-12] MEDS: LEVOTHYROXINE SODIUM 125 MCG TABLET PO (21:25)
[2023-04-12] MEDS: ASPIRIN 81 MG ENTERIC TABLET PO (21:25)
[2023-04-12] MEDS: ATORVASTATIN 20 MG TABLET PO (21:25)
[2023-04-12] MEDS: INSULIN GLARGINE (*BKC) 100 UNITS/ML 21 UNITS SUB-Q (21:27)
[2023-04-12 21:40] LABS: Glucose Point of Care 141 mg/dl (65-105)
[2023-04-13] VITALS (14 sets, daily range): BP systolic 81–162; BP diastolic 59–79; PULSE 30–83; RESP 14–24; TEMP 36.5–36.9; O2SAT 95–98
[2023-04-13 00:34] LABS: Glucose Point of Care 152 mg/dl (65-105)
[2023-04-13] MEDS: DOPamine 400 MG/D5W 250 ML 400 MG/250 ML BAG 23.2 MG IV CONT (04:28)
[2023-04-13 04:35] LABS: Basophils Percent Auto 0.4 % (0.2-1.2); Eosinophils Absolute Auto 0.1 K/mm3 (0-0.3); Eosinophils Percent Auto 0.7 % (0-4.4); Hematocrit 39.9 % (37.0-47.0); Hemoglobin 12.7 g/dL (12.0-15.0); Immature Granulocyte Absolute 0.02 K/mm3 (0.00-0.031); Immature Granulocyte Percent A 0.2 % (0-0.5); Lymphocytes Absolute Auto 2.08 K/mm3 (0.9-3.2); Lymphocytes Percent Auto 21.2 % (18.3-44.2); Mean Corpuscular HGB Conc 31.8 g/dl (32-36); Mean Corpuscular Hemoglobin 27.1 pg (26-34); Mean Corpuscular Volume 85.3 fl (80-100); Mean Platelet Volume 9.5 fl (7.4-10.4); Monocytes Absolute Auto 0.6 K/mm3 (0.1-0.6); Monocytes Percent Auto 6.3 % (2.6-8.5); Neutrophils Percent Auto 71.2 % (45.5-73.1); Platelet Count Result 238 k/mm3 (150-375); Red Blood Count 4.68 M/mm3 (4.2-5.4); White Blood Count 9.8 K/mm3 (4.5-10.0)
[2023-04-13 04:44] LABS: Alanine Aminotransferase 16 U/L (6-35); Albumin Level 3.7 g/dL (3.5-5.1); Alkaline Phosphatase 75 U/L (38-126); Anion Gap 8 mmol/L (8-16); Aspartate Amino Transferase 17 U/L (14-36); Bilirubin,Total 0.4 mg/dL (0.2-1.3); Blood Urea Nitrogen 12 mg/dL (7-17); Calcium 8.4 mg/dL (8.4-10.2); Carbon Dioxide 22 mmol/L (22-30); Chloride 108 mmol/L (98-107); Estimated CRCL calculation 100 ml/min; Estimated Glomerular Filt Rate > 60; Glucose 118 mg/dL (65-110); Magnesium 2.3 mg/dL (1.6-2.3); Phosphorus 3.3 mg/dL (2.5-4.5); Potassium 3.9 mmol/L (3.4-5.0); Sodium 138 mmol/L (137-145)
[2023-04-13 04:45] LABS: INR 1.1; Prothrombin Time 14.3 Seconds (11.1-14.7)
[2023-04-13 04:46] LABS: Partial Thromboplastin Time 33.2 SECONDS (22.3-36.8)
--- NOTE | 2023-04-13 08:01 | WPDMODSED ---
Moderate Sedation Note-Pt Data Patient Data Diagnosis: Acquired complete heart block with symptomatic bradycardia Present Complaint: Recent episode of syncope Procedure to be performed/Plan: Implantation of dual-chamber pacemaker Allergies Allergy/AdvReac Type Severity Reaction Status Date / Time propoxyphene Allergy Unknown Unknown Verified 04/11/23 22:13 [From LeighannRadha] Home Medications Medication Instructions Recorded Confirmed Type aspirin 81 mg tablet,delayed 81 mg PO HS 12/18/22 04/11/23 History release atorvastatin 20 mg tablet 20 mg PO HS 12/18/22 04/11/23 History empagliflozin 25 mg tablet 25 mg PO HS 12/18/22 04/11/23 History (Jardiance) insulin degludec 200 unit/mL (3 50 unit subcut HS 12/18/22 04/11/23 History mL) subcutaneous pen (Tresiba FlexTouch U-200 insulin) levothyroxine 125 mcg tablet 125 mcg PO HS 12/18/22 04/11/23 History (Synthroid) semaglutide 2 mg/dose (8 mg/3 mL) 2 mg subcut WEEKLY 12/18/22 04/11/23 History subcutaneous pen injector (Ozempic) sertraline 100 mg tablet 100 mg PO HS 12/18/22 04/11/23 History Current Medications: Active Medications Acetaminophen (Acetaminophen 325 Mg Tablet) 650 mg PO Q4H PRN PRN Reason: Headache Last Admin: 04/12/23 21:40 Dose: 650 mg Aspirin (Aspirin 81 Mg Enteric Tablet) 81 mg PO HS [facility] Last Admin: 04/12/23 21:25 Dose: 81 mg Atorvastatin Calcium (Atorvastatin 20 Mg Tablet) 20 mg PO HS [facility] Last Admin: 04/12/23 21:25 Dose: 20 mg Dextrose (Dextrose 50% 25 Gm/50 Ml Syringe) 12.5 gm IV PUSH PRN PRN; Protocol PRN Reason: Hypoglycemia Empagliflozin (Empagliflozin 25 Mg Tablet) 25 mg PO HS [facility] Last Admin: 04/12/23 21:24 Dose: 25 mg Glucagon (Glucagon For Inj 1 Mg Vial) 1 mg IM PRN PRN; Protocol PRN Reason: Hypoglycemia Glucose (Glucose Oral Gel 15 Gm Of Glucse In 37.5 Gm Tube) 15 gm PO PRN PRN; Protocol PRN Reason: Hypoglycemia Dextrose (Dextrose 5% 1,000 Ml) 1,000 mls @ 100 mls/hr IVPB PRN PRN; Protocol PRN Reason: Hypoglycemia Dopamine HCl/Dextrose (Dopamine 400 Mg/D5w 250 Ml) 400 mg in 250 mls @ 23.198 mls/hr IV CONT .[id number] [facility] Last Admin: 04/13/23 04:28 Dose: 6 mcg/kg/min, 23.2 mls/hr Insulin Aspart (Insulin Aspart (*Bkc) 100 Units/Ml) 2 - 5 units SUB-Q Q6HR [facility]; Protocol Last Admin: 04/13/23 05:19 Dose: Not Given Insulin Glargine (Insulin Glargine (*Bkc) 100 Units/Ml) 21 units 0.2 units/kg (21 units) SUB-Q HS [facility] Last Admin: 04/12/23 21:27 Dose: 21 units Levothyroxine Sodium (Levothyroxine Sodium 125 Mcg Tablet) 125 mcg PO HS [facility] Last Admin: 04/12/23 21:25 Dose: 125 mcg Sertraline HCl (Sertraline Hcl 50 Mg Tablet) 100 mg PO HS [facility] Last Admin: 04/12/23 21:23 Dose: 100 mg Sedation/Anesthesia: No previous sedation/anesthesia problems (including family history). [facility] Past Medical History Medical History BPPV (benign paroxysmal positional vertigo) Cataract Maturing cataracts Diabetes Diabetic peripheral neuropathy Hyperlipidemia Hypothyroidism Obesity (BMI 30-39.9) Surgical History Surgical History History of esophagogastroduodenoscopy (~2009) History of laparoscopic adjustable gastric banding Placed in 2006 and removed in 2009 due to slippage History of total hysterectomy with bilateral salpingo-oophorectomy (BSO) (~2012) Normal colonoscopy (~2009) Family History Family History Father Diabetes mellitus Heart disease Hypertension Mother Uterine cancer Sibling Diabetes mellitus Cerebrovascular accident Heart disease Grandparent Breast cancer Social History Social History Social History: The patient got for the 1st time 5 years ago. 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 She has 3 dogs at home. She denied ever had an
[2023-04-13] MEDS: ACETAMINOPHEN 325 MG TABLET 650 MG PO ×2 (11:55→22:22)
[2023-04-13 11:58] LABS: Glucose Point of Care 94 mg/dl (65-105)
--- NOTE | 2023-04-13 12:35 | WPDINTPN ---
Progress Note: A&P Assessment and Plan (1) Third degree heart block: Code(s): I44.2 - Atrioventricular block, complete Status: Acute Assessment and Plan: Patient had episode in November 2022, had a Holter monitor placed which showed complete heart block, injection molding machine setter had called of patient to come to the ER to get evaluated. He had GI EKG confirmed complete heart block, blood pressures were stable so patient was started on dopamine. Currently asymptomatic -appreciate cardiology evaluation -echocardiogram showed normal LV with inferior wall hypokinesis per cardiology note -continue dopamine infusion for now -04/13: Permanent pacemaker implantation today by Cardiology (2) Diabetes: Qualifiers: Diabetes mellitus type: type 2 Diabetes mellitus longterm insulin use: with terminal system operator use Diabetes mellitus complication status: with neurologic complications Diabetes mellitus complication detail: with polyneuropathy Qualified Code(s): E11.42 - Type 2 diabetes mellitus with diabetic polyneuropathy; Z79.4 - prison (current) use of insulin Code(s): E11.9 - Type 2 diabetes mellitus without complications Status: Acute Assessment and Plan: Continue oral hypoglycemics and sliding scale insulin (3) Thyroid disorder: Code(s): E07.9 - Disorder of thyroid, unspecified Status: Acute Assessment and Plan: Continue levothyroxine Plan DVT prophylaxis: Lovenox on hold for pacemaker procedure Stress ulcer prophylaxis: Not indicated Nutrition: NPO for pacemaker procedure Code Status: Full code Critical Care Time Spent: 33 minutes Discussed with cardiology -discussed with patient updated with her condition and plan of care. She is aware that she will be getting a pacemaker implantation today. Due to a high probability of clinically significant, life threatening deterioration, the patient required my highest level of preparedness to intervene emergently and I personally spent this critical care time directly and personally managing the patient. This critical care time included obtaining a history; examining the patient; pulse oximetry; ordering and review of studies; arranging urgent treatment with development of a management plan; evaluation of patient's response to treatment; frequent reassessment; and discussions with other providers. It was exclusive of separately billable procedures and treating other patients and teaching time. Please see Assessment and Plan section and the rest of the note for further information on patient assessment and treatment This dictation may have been done utilizing a voice recognition system. Attempts have been made to correct errors. However, there may be uncorrected grammatical, spelling, and recognitions errors present. Subjective Date/time seen: 04/13/23 12:35 Interval history: Reason for consult: Complete heart block on dopamine, pacer pads, episode of syncope and lightheadedness 04/13/2023: Patient seen examined the ICU, is awake, alert, oriented, pleasant female. Patient remains in complete heart block with heart rates in the low 30s. Remains on dopamine at 6 mcg/kg/min. Blood pressures remain stable, patient is asymptomatic. Denies any chest pain, shortness of breath, abdominal pain. She did complain of nausea overnight. Review of Systems Review of Systems: All systems reviewed & are unremarkable except as noted in HPI and below Exam Narrative: General: Patient is awake, alert, pleasant, not in any distress HEENT:? Pupils are equal and reactive, sclera is clear, Neck:? Supple clear to auscultation bilaterally, S1-S2 is normal, no wheezing, adequate air entry Cardiac:? Complete all block with rates 30s with occasional dips in the upper 20s Extremities:? Trace edema, palpable pedal pulses Neuro:? Patient is awake, alert, oriented sitting on nonfocal Skin:? Warm and dry Psych:? Normal mentation and affect Objective Data Vit
--- NOTE | 2023-04-13 14:14 | ECG_ITS ---
Measurements Intervals [place] Rate: 69 P: 54 ND: 252 QRS: 95 QRSD: 145 T: -62 QT: 460 QTc: 496 Interpretive Statements ATRIAL SENSE- ELECTRONIC VENTRICULAR PACEMAKER BASELINE ARTIFACT- I, III, AVL NO FURTHER INTERPRETATION IS POSSIBLE ATYPICAL ECG COMPARED TO ECG 04/11/2023 20:03:31 VENTRICULAR PACEMAKER NOW PRESENT Electronically Signed On 04-14-2023 13:06:42 CDT by Bruce Garcia D.O.
--- NOTE | 2023-04-13 14:16 | WPDCARDPROC ---
Cardiac Cath Procedure Note Date of procedure:: 04/13/23 Performing physician:: Deni Baugh MD Indication:: complete heart block Brief clinical history:: this is a 67-year-old woman who experienced a syncopal episode several months ago. She was in the midst of having a event monitor performed when the company informed the customer program specialist of complete heart block. Yesterday the patient was directed to the emergency room for this reason. Despite being bradycardic she was asymptomatic but in sustained complete heart block. In this setting permanent pacemaker implant has been recommended. She is known on previous testing to have normal left ventricular systolic function and a chronic left bundle branch block. Procedure Procedure performed:: Implantation of permanent pacemaker Sedation/Medication given:: fentanyl 50 mg Versed 2 mg Access site:: left subclavian vein Estimated blood loss:: less than 25 cc Procedure note:: patient was brought to the cardiac catheterization lab in the postabsorptive state where the left anterior chest wall was prepped and draped in the usual fashion. Anesthesia was provided with 1% lidocaine infiltrated locally inferior to the clavicle. Following this an incision was made from the midclavicular line to near the deltopectoral groove and electrocautery was used to provide cutaneous hemostasis. Using sharp and blunt dissection subcutaneous tissue was down to the level of the prepectoral fascia. There was quite a bit of subcutaneous fat with which to contend. Following this using blunt dissection a pacemaker pocket was created along the fascial plane inferior to the incision. Attention was then turned to venous access. After several unsuccessful attempts to access the subclavian vein I elected to perform a venogram using the left upper extremity venous access. Following this the location of the vein was more inferior than anticipated. The subclavian vein was then punctured easily twice placing the 2 J-tip guidewires into the venous circulation to the level the right atrium. Using 2 6 Sami safe sheaths the pacemaker leads detailed below were then placed into the venous circulation and to the level of the right atrium. Attention was then turned to placing the ventricular lead. I removed the straight stylet and used a 3 cc syringe to form a J-tip stylet on the lead. This was directed through the tricuspid valve annulus out to the pulmonary artery position. A straight stylet was then placed into lead was withdrawn proximal to the pulmonic valve and placed into the interventricular septum. The fixation screw was then deployed and appropriate pacing and sensing performance was documented. Attention was then turned to the atrial lead. The straight stylet was removed and a preformed atrial J stylet was placed into the lead. This was then maneuvered right atrial appendage the fixation screw was then deployed upon withdrawal of the stylet the lead was fixed into position. Following this the lead was tested using the analyzer once again appropriate pacing and sensing ) demonstrated. In both leads a 10 volts stimuli as failed to show any evidence of extracardiac stimulation. The leads were then secured to the base of the pocket using the suture sleeves and 2-0 silk ties. Following this the retained sponge was removed removed from the pocket and the pocket was irrigated with Ancef infused saline. After this the pacemaker generator was connected to the leads and secured using the torque wrench. Following this the entire assembly was placed into the newly created pocket which was closed in layers using 3-0 Vicryl in an interrupted fashion for the subcutaneous tissue and 4-0 Vicryl in a subcuticular fashion skin. The wound was then dressed with bio glue and Aquacel dressing. Procedure was well tolerated and uncomplicated. Findings:: Patient received a permanent Biotronik dual-chamber pacemaker mode
[2023-04-13] MEDS: SODIUM CHLORIDE 0.9% IV 1,000 ML 50 ML IV CONT (17:12)
[2023-04-13] MEDS: ceFAZolin 1 GM/NS 50 ML 1 GM/50 ML BAG IVPB (20:29)
[2023-04-13] MEDS: INSULIN GLARGINE (*BKC) 100 UNITS/ML 21 UNITS SUB-Q (20:42)
[2023-04-13] MEDS: ASPIRIN 81 MG ENTERIC TABLET PO (20:44)
[2023-04-13] MEDS: LEVOTHYROXINE SODIUM 125 MCG TABLET PO (20:45)
[2023-04-13] MEDS: EMPAGLIFLOZIN 25 MG TABLET PO (20:45)
[2023-04-13] MEDS: SERTRALINE HCL 50 MG TABLET 100 MG PO (20:45)
[2023-04-13] MEDS: ATORVASTATIN 20 MG TABLET PO (20:46)
[2023-04-13 20:50] LABS: Glucose Point of Care 138 mg/dl (65-105)
--- NOTE | 2023-04-13 21:55 | PC.NURSE ---
Transferred patient to [facility]. Report given to CHELSEY Butler. Belongings sent with patient.
--- NOTE | 2023-04-13 22:10 | PC.NURSE ---
RECEIVED PT VIA TRANSFER FROM ICU 9. PT APPEARS COMFORTABLE IN BED AND HAS BELONGINGS. NO COMPLAINTS AT THIS TIME
[2023-04-14] VITALS: BP 139/69; PULSE 65; PULSE 68; RESP 20; TEMP 36.1; O2SAT 98
[2023-04-14 00:49] LABS: Glucose Point of Care 83 mg/dl (65-105)
[2023-04-14 04:00] VITALS: BP 128/97; PULSE 65; PULSE 67; RESP 20; TEMP 36.4; O2SAT 97
[2023-04-14] MEDS: ceFAZolin 1 GM/NS 50 ML 1 GM/50 ML BAG IVPB (04:00)
[2023-04-14 06:20] LABS: Glucose Point of Care 86 mg/dl (65-105)
[2023-04-14 08:00] VITALS: O2SAT 99
[2023-04-14 08:53] VITALS: BP 116/59; PULSE 79; RESP 16; TEMP 36.9; O2SAT 99
[2023-04-14 09:04] LABS: Glucose Point of Care 79 mg/dl (65-105)
--- NOTE | 2023-04-14 10:12 | PM.PNCARD ---
Progress Note: A&P Assessment and Plan (1) Third degree heart block: Code(s): I44.2 - Atrioventricular block, complete Status: Acute Assessment and Plan: History of syncope, admitted with complete heart block, status post dual-chamber pacemaker yesterday with normal function. -- Chest x-ray pending from today -- if no abnormality, okay for discharge today -- office will schedule pacemaker check and incision check in 1 week -- will cancel patient's Lexiscan scheduled for June since we have found the etiology of her syncope -- keep regularly scheduled appointment in June -- patient counseled about pacemaker follow-up, incision care, activity restrictions etc. --Cephalexin 500 mg BID for 1 week. (2) Snoring: Code(s): R06.83 - Snoring Status: Acute Assessment and Plan: Not received sleep study yet. (3) Abnormal urinalysis: Code(s): R82.90 - Unspecified abnormal findings in urine Status: Acute Assessment and Plan: Patient had some white cells in her urine etc. suggestive of UTI with no symptoms. Recommended follow-up with her primary care doctor, ottoniel if sx develop. Subjective Date/time seen: 04/14/23 10:12 Interval history: Patient with history of syncope was found to have complete heart block an outpatient monitoring and admitted. Status post dual-chamber Biotronik pacemaker 04/13/2023. Date of service 04/14/2023: Patient is feeling well, minimal tenderness, very grateful that she has had prompt attention and good care. Telemetry shows atrial sensing and ventricular pacing. Pacemaker check shows good sensing and thresholds. Review of Systems Review of Systems: Mild incisional soreness, no shortness of breath, chest pain, dysuria, dizziness Exam Const: General: cooperative, healthy appearing and comfortable; No confusion Orientation/consciousness: oriented to person, patient oriented x3 and No confusion HENMT: Mouth: Yes moist mucous membranes Eyes: EOM: EOMs intact bilaterally Neck: Neck: supple Resp: Effort & Inspection: normal respiratory effort Auscultation: clear to auscultation bilaterally Cardio: Rate: regular rate Rhythm: regular rhythm Heart sounds: no murmurs GI: Inspection: normal to inspection GI Palp: No abdominal tenderness Skin: General skin exam: normal color and no rashes or lesions noted Other: Aquacel dressing dry and intact Over pacemaker incision, no surrounding hematoma or ecchymosis. Neuro: General: oriented to person, patient oriented x3 and No confusion Extrem: Right lower extremity: no edema Left lower extremity: no edema Psych: Appearance: grossly normal Mental Status: mental status grossly normal Objective Data Vital Signs Vital Signs: Vital Signs - 24 hr 04/13/23 12:00 04/13/23 12:00 04/13/23 12:00 Temperature 98 F Pulse Rate 32 L 32 L 32 L Respiratory Rate 20 20 Blood Pressure 162/75 H Pulse Oximetry 97 97 Oxygen Delivery Room Air Fraction of Inspired Oxygen 04/13/23 15:59 04/13/23 16:00 04/13/23 16:00 Temperature 97.8 F Pulse Rate 80 76 Respiratory Rate 24 H Blood Pressure 81/61 L Pulse Oximetry 98 Oxygen Delivery Fraction of Inspired Oxygen 04/13/23 16:00 04/13/23 18:00 04/13/23 19:15 Temperature Pulse Rate 76 70 Respiratory Rate 24 H Blood Pressure 131/75 Pulse Oximetry 98 Oxygen Delivery Room Air Fraction of Inspired Oxygen 04/13/23 20:00 04/13/23 20:00 04/13/23 20:00 Temperature 97.8 F Pulse Rate 83 73 Respiratory Rate 16 Blood Pressure 147/79 H Pulse Oximetry 97 97 Oxygen Delivery Room Air Fraction of Inspired Oxygen 04/14/23 00:00 04/13/23 22:00 04/14/23 00:00 Temperature 96.9 F L Pulse Rate 68 64 65 Respiratory Rate 20 Blood Pressure 139/69 Pulse Oximetry 98 Oxygen Delivery Fraction of Inspired Oxygen 04/14/23 04:00 04/14/23 04:00 04/14/23 08:53 [place]
--- NOTE | 2023-04-14 11:00 | PM.DS ---
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 He had GI EKG confirmed complete heart block, blood pressures were stable so patient was started on dopamine. Currently asymptomatic -appreciate cardiology evaluation -echocardiogram showed normal LV with inferior wall hypokinesis per cardiology note -continue dopamine infusion for now -04/13: Permanent pacemaker implantation today by Cardiology (2) Diabetes: Qualifiers: Diabetes mellitus type: type 2 Diabetes mellitus programming coordinator insulin use: with assisted use Diabetes mellitus complication status: with neurologic complications Diabetes mellitus complication detail: with polyneuropathy Qualified Code(s): E11.42 - Type 2 diabetes mellitus with diabetic polyneuropathy; Z79.4 - supervisor billposting (current) use of insulin Code(s): E11.9 - Type 2 diabetes mellitus without complications Status: Acute Assessment and Plan: Continue oral hypoglycemics and sliding scale insulin (3) Thyroid disorder: Code(s): E07.9 - Disorder of thyroid, unspecified Status: Acute Assessment and Plan: Continue levothyroxine Plan DVT prophylaxis: Lovenox on hold for pacemaker procedure Stress ulcer prophylaxis: Not indicated Nutrition: NPO for pacemaker procedure Code Status: Full code Critical Care Time Spent: 33 minutes Discussed with cardiology -discussed with patient updated with her condition and plan of care. She is aware that she will be getting a pacemaker implantation today. Due to a high probability of clinically significant, life threatening deterioration, the patient required my highest level of preparedness to intervene emergently and I personally spent this critical care time directly and personally managing the patient. This critical care time included obtaining a history; examining the patient; pulse oximetry; ordering and review of studies; arranging urgent treatment with development of a management plan; evaluation of patient's response to treatment; frequent reassessment; and discussions with other providers. It was exclusive of separately billable procedures and treating other patients and teaching time. Please see Assessment and Plan section and the rest of the note for further information on patient assessment and treatment This dictation may have been done utilizing a voice recognition system. Attempts have been made to correct errors. However, there may be uncorrected grammatical, spelling, and recognitions errors present. DS: Summary Hospital Course Hospital Course: 67-year-old female has history of recurrent syncope. Came into the ER with complaint heart block. Apparently this was picked up by her home monitor. Pacemaker was placed. Patient has been doing well after her surgery. Follow-up cardiology Time Spent with Patient Time attestation: Total time spent providing and/or coordinating discharge services: Exam Narrative: General: Patient is awake, alert, pleasant, not in any distress HEENT:? Pupils are equal and reactive, sclera is clear, Neck:? Supple clear to auscultation bilaterally, S1-S2 is normal, no wheezing, adequate air entry Cardiac:? Complete all block with rates 30s with occasional dips in the upper 20s Extremities:? Trace edema, palpable pedal pulses Neuro:? Patient is awake, alert, oriented sitting on nonfocal Skin:? Warm and dry Psych:? Normal mentation and affect DS: Data Data Completed and Pending Labs on day of discharge: Labs from last 24 hours 04/14/23 04/14/23 04/14/23 08:36 06:17 00:44 POC Capillary
[2023-04-14 11:32] LABS: Glucose Point of Care 144 mg/dl (65-105)
== END 2023-04-14 13:40 | disposition home or self-care (01) | DRG 244 ==
LOC: ANHED 20:54 → ANHICU 21:44 → ANH2MED 04-13 22:09
PROVIDERS: Internal Medicine; Specialist; Admitting Provider Internal Medicine; Emergency Provider Preventive Medicine Aerospace Medicine; PCP Student in an Organized Health Care Education/Training Program; Visit Provider Chiropractor
PROC: 0JH606Z Insertion of Pacemaker, Dual Chamber into Chest Subcutaneous Tissue and Fascia, Open Approach (ICD-10-PCS; CPT 33208; principal; 2023-04-13 11:30)
DX: I44.2 Atrioventricular block, complete (principal); E11.42 Type 2 diabetes mellitus with diabetic polyneuropathy; E78.5 Hyperlipidemia, unspecified; E03.9 Hypothyroidism, unspecified; R82.90 Unspecified abnormal findings in urine; R06.83 Snoring; E66.9 Obesity, unspecified; Z98.84 Bariatric surgery status; Z90.710 Acquired absence of both cervix and uterus; Z79.4 Long term (current) use of insulin; Z90.722 Acquired absence of ovaries, bilateral; Z68.39 Body mass index [BMI] 39.0-39.9, adult
CPT/HCPCS: 33208; 36415; 71045; 80048; 80053; 81001; 82948; 83735; 84100; 84443; 84484; 85025; 85610; 85730; 87086; 87088; 93005; 94762; 96365; 96366; 96375; 99285; A9270; C1779; C1785; G0378; J0690; J1265; J1650; J1815; J2250; J2405; J3010; J7030; J7040

== ENCOUNTER 2023-07-20 08:34 | Outpatient (CLI) | payer MEDICARE, SELFPAY ==
--- NOTE | ~2023-07-20 | MM_ITS ---
EXAMINATION: MM screening kev BI w michelle HISTORY: Screening mammogram TECHNIQUE: Craniocaudal and mediolateral oblique 3-D tomosynthesis images were obtained and synthetic 2-D images were generated. CAD analysis was submitted and interpreted. COMPARISON: 04/17/2022 diagnostic left mammogram and limited left breast ultrasound 03/12/2022, 03/04/2021 bilateral screening mammogram examinations BREAST PARENCHYMAL COMPOSITION: There are scattered areas of fibroglandular density. FINDINGS: Stable small circumscribed benign-appearing opacity in the lower outer left breast. Stable mild fibroglandular asymmetry since 03/2021. There is no evidence of suspicious mass, calcification, o r architectural distortion to suggest malignancy in either breast. There has been no suspicious inter fred change. IMPRESSION: 1. No mammographic evidence of malignancy. 2. Recommend routine screening mammography in one year. BI-RADS Category 2: Benign finding(s). Reviewed, dictated and finalized at location A. [facility]
== END 2023-07-20 08:35 | disposition home or self-care (01) ==
LOC: ANHIMG 08:36
PROVIDERS: PCP Family Medicine; Visit Provider Family Medicine
DX: Z12.31 Encounter for screening mammogram for malignant neoplasm of breast (principal)
CPT/HCPCS: 77063; 77067

== ENCOUNTER 2025-01-02 10:26 | Outpatient (CLI) | payer MEDICARE, SELFPAY ==
--- NOTE | ~2025-01-02 | MM_ITS ---
EXAMINATION: screening [facility] BI w michelle INDICATION: Asymptomatic, referred for screening mammogram COMPARISON: 07/20/2023 through 02/16/2020 TECHNIQUE: Digital breast tomosynthesis craniocaudal and mediolateral oblique views of Both breasts w ere obtained with computer-aided detection to assist in interpretation of the study. FINDINGS: There are scattered areas of fibroglandular density. No focal dominant mass, architectural distortion, or suspicious microcalcifications are identified. There are no features to suggest malignancy. IMPRESSION: No evidence of malignancy in the breast. Recommend continued screening mammography BI-RADS 1, NEGATIVE Reviewed, dictated and finalized at location B.
--- OUTSIDE RECORDS SUMMARY | 2025-01-02 11:04 | XMS_ITS | Referral Summary ---
Author Organization [facility] Address [address] [place] [address] Care Team Providers Care Business Process Consultant Name Role Phone Silvia Bland MD Primary Care Provide r Encounters Date Type Department Care Team Description 12/27/2024 7:30 AM CDT Ancillary Procedure [facility] Cardiology [address] [place] [phone] Cardiac pacemaker in situ; CHB (complete heart block) (HCC) 10/07/2024 Results Follow-Up [facility] Diabetes and Endocrinology [address] [place] [phone] Nathalie Zabala NP T4, free, TSH, Lipid panel, Additional followed-up results: 3 10/05/2024 2:25 PM CANVASS MANAGER - 10/05/2024 11:59 PM CANVASS MANAGER Hospital Encounter [address] [id number] Acquired hypothyroidism; Type 2 diabetes mellitus with hyperglycemia, with long-term current use of insulin (HCC); Hyperlipidemia associated with type 2 diabetes mellitus (HCC) Discharge Disposition: Discharge to home or self care 10/05/2024 2:15 PM CANVASS MANAGER Lab [facility] Outpatient Lab at [address] [phone] Acquired hypothyroidism (Primary Dx) 10/05/2024 1:30 PM CANVASS MANAGER Office Visit [facility] Diabetes and Endocrinology [address] [place] [phone] Nathalie Zabala, JESUS Type 2 diabetes mellitus with hyperglycemia, with long-term current use of insulin ([facility]) (Primary Dx); Hyperlipidemia associated with type 2 diabetes mellitus (HCC); Acquired hypothyroidism from Last 3 Months Allergies Active Allergy Reactions Criticality Noted Date Comments Guaifenesin Other (See comments) High 04/11/2011 Mouth sores. Propoxyphene N-Acetaminophen Unknown 03/13/2022 Propoxyphene Napsylate Nausea And Vomiting 12/2009 Medications BD Ultra-Fine Short Pen Needle 31 gauge x 5/16 needleIndicati ons:Type 2 diabetes mellitus with hyperglycemia, with long-term current use of insulin ([facility]) Use to inject insulin once daily 100 each 3 11/07/19 23 Active aspirin 81 mg capsule Take 81 mg by mouth daily Active levothyroxine (SYNTHROID) 125 mcg tabletIndicati ons:Type 2 diabetes mellitus with hyperglycemia, with long-term current use of insulin ([facility]) TAKE 1 TABLET(125 MCG) BY MOUTH DAILY 90 tablet 3 06/02/20 24 Active blood-glucose meter,continuo us (Dexcom G7 [employer] Supervisor) misc Activ e atorvastatin (LIPITOR) 20 mg tabletIndicati ons:Hyperlipid emia associated with type 2 diabetes mellitus (HCC) Take 1 tablet (20 mg total) by mouth daily 90 tablet 3 06/27/20 24 025 Active Ozempic 2 mg/dose (8 mg/3 mL) pen injector injectionIndic ations:Type 2 diabetes mellitus with hyperglycemia, with long-term current use of insulin ([facility]) INJECT 2MG UNDER THE SKIN ONCE A WEEK 3 mL 3 09/02/19 25 Active Dexcom G7 Sensor device 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 CHANGE EVERY 10 DAYS. 09/02/19 25 Active TRESIBA 100 unit/mL (3 mL) pen for injectionIndic ations:type 2 diabetes mellitus Patient taking differently: 48-50 Units subcutaneously, Daily 15 mL 6 11/18/19 25 Active Jardiance 25 mg tabletIndicati ons:Type 2 diabetes mellitus with hyperglycemia, with long-term current use of insulin ([facility]) TAKE 1 TABLET(25 MG) BY MOUTH DAILY 90 tablet 1 12/07/19 25 Active Jardiance 25 mg tabletIndicati ons:Type 2 diabetes mellitus with hyperglycemia, with long-term current use of insulin (HCC) TAKE 1 TABLET(25 MG) BY MOUTH DAILY 90 tablet 1 09/02/19 025 Discontinued Active Problems Problem Noted Date Diagnosed Date Morbid (severe) obesity due to excess calories 0 11/26/2023 Class 2 severe obesity due t o excess calories with serious comorbidity and body mass index (BMI) of 38.0 to 38.9 in adult 11/26/2023 Assessment & Plan (11/26/2023 9:12 AM CDT): Chronic problem. Discussed healthy diet and importance of regular physical activity (20- 30min/day, 150min/wk). Currently taking Ozempic for diabetes. Has had some help with weight loss. Intermittent complete heart block 06/28/2023 Hospital discharge follow-up 04/22/2023 Assessment & Plan (04/22/2023 1:33 PM CDT): Med list reviewed Hospital discharge reviewed Appointment follow ups discussed Wound of foot 04/22/2023 Assessment & Plan (04/22/2023 5:06 PM CDT): No signs of cellulitis Complete keflex F/u for worsening symptoms fevers redness Cardiac pacemaker in situ 04/14/2023 Overview (04/14/2023): Biotronik Edora Dual Pacemaker. Dx; CHB. DOI 04/13/2023-[facility]. Biotronik remote monitoring. Assessment & Plan (04/22/2023 1:34 PM CDT): Pacemaker for complete heart block placed during hospitalization Follows with cardiology for management Abnormal echocardiogram 03/30/2023 Anxiety 11/13/2022 Assessment & Plan (11/13/2022 2:42 PM CDT): Stable Continue sertraline 100mg daily Syncope 11/13/2022 Assessment & Plan (11/13/2022 9:12 PM CDT): Instructed not to drive, should this happen again report to the ED Referral to cardiology and echo to evaluate for structural abnormality or arhythmia Referral to neurology for the syncopal episode as well as the chronic dizziness Class 3 severe obesity due t o excess calories with serious comorbidity and body mass index (BMI) of 40.0 to 44.9 in adult 09/02/2022 Assessment & Plan (09/02/2022 10:34 AM CANVASS MANAGER): Discussed healthy diet and importance of regular physical activity (20- 30min/day, 150min/wk). Recurrent major depression 07/16/2022 Assessment & Plan (07/16/2022 10:51 AM CANVASS MANAGER): Discussed starting a new medication and pt is agreeable. Will start sertraline . Discussed starting dose and titration to full dose, possible SE and time frame for expected results. Call if any suicidal thoughts or questions concerning SE. Do not abruptly stop medication without calling office. Follow up in 3-4 weeks for recheck and continuation of medications. Vertigo 07/16/2022 Assessment & Plan (11/13/2022 3:06 PM CDT): Stable / clinically quiescent. Will continue to monitor. Continue meclizine as needed Referral to ENT Assessment & Plan (07/16/2022 10:55 AM CANVASS MANAGER): Discussed that vertigo can be short term condition that may resolve on it's own. She has meclizine to take prn. Offered referral to ENT, but pt is going to hold off on referral for now. May call for worsening/ continuing symptoms, otherwise will have her f/u in 1 month for scheduled physical with Dr. Robertson Type 2 diabetes mellitus with hyperglycemia 03/03 Assessment & Plan (10/05/2024 2:11 PM CANVASS MANAGER): Chronic problem, A1c at goal and increased from 6.4% 06/27/24 to now 6.6%. wearing Dexcom G7 & no hypoglycemia. No changes at this time. Current medications: Jardiance 25mg daily Ozempic 2 mg weekly Tresiba 48-50 units daily Will update labs. Verified that she uses mychart. Aware to check results/results letter in mychart. Will contact by phone if needed. UTD on DM eye exam (06/28/24 no DMR/DME Richelle Aguiar). Discussed with Verenice Palacios: Strive for regular exercise (30min most days) and diet (get at least 4-5 servings of fruit and veggies daily, avoid processed foods, increase lean protein intake and decrease carb portions as well as fruit juices, regular soda & desserts). Watch carbs and simple sugars. Check the blood sugar: daily. Check the feet daily for skin breakdown and infection. Assessment & Plan (06/27/2024 9:56 AM CANVASS MANAGER): Chronic problem, A1c at goal and improved 7.4% 11/26/23 to now 6.4%. wearing Dexcom G7 & no hypoglycemia. No changes at this time. Current medications: Jardiance 25mg daily Ozempic 2 mg weekly Tresiba 48 units daily UTD on labs UTD on DM eye exam (01/02/23 no DMR/DME Richelle Aguiar). Had summer 2023. Letter sent to get copy of report. Discussed with Verenice Palacios: Strive for regular exercise (30min most days) and diet (get at least 4-5 servings of fruit and veggies daily, avoid processed foods, increase lean protein intake and decrease carb portions as well as fruit juices, regular soda & desserts). Watch carbs and simple sugars. Check the blood sugar: daily. Check the feet daily for skin breakdown and infection. Assessment & Plan (11/26/2023 9:34 AM CDT): Chronic problem, continues to improve but not yet at goal (improved slightly from 7.6% to now 7.4%). Current medications: Jardiance 25mg daily Ozempic 2 mg weekly Tresiba 50 units daily Will update labs today. Verified that she uses mychart. Aware to check results/results letter in mychart. Will contact by phone if needed. UTD on DM eye exam (01/2023). Discussed with Verenice Palacios: Strive for regular exercise (30min most days) and diet (get at least 4-5 servings of fruit and veggies daily, avoid processed foods, increase lean protein intake and decrease carb portions as well as fruit juices, regular soda & desserts). Watch carbs and simple sugars. Check the blood sugar: daily. Check the feet daily for skin breakdown and infection. Assessment & Plan (07/14/2023 11:04 AM CANVASS MANAGER): Chronic problem, improving but not at goal (improved slightly from 7.7% 01/2023 to now 7.6%). Current medications: Jardiance 25mg daily Ozempic 2 mg weekly Tresiba 50 units daily UTD on labs. UTD on DM eye exam (01/2023). Discussed with Verenice Palacios: Strive for regular exercise (30min most days) and diet (get at least 4-5 servings of fruit and veggies daily, avoid processed foods, increase lean protein intake and decrease carb portions as well as fruit juices, regular soda & desserts). Watch carbs and simple sugars. Check the blood sugar: daily. Check the feet daily for skin breakdown and infection. Assessment & Plan (01/22/2023 3:06 PM CDT): Hba1c was Lab Results Component Value Date HGBA1C 7.7 01/22/2023 today, indicating inadequate DM control Goal Hba1c and blood glucose explained Diet and exercise were advised Prevention and treatment of hyypoglcyemia were discussed with the patient Blood glucose monitoring : 2 x day Adjustment to medications: Continue current regimen Ozempic has been increased to 2 mg weekly Samples provided Assessment & Plan (11/12/2022 6:58 AM CDT): The patient was counseled on a heart-healthy, diabetic-friendly diet, as well as life-style modification. Education provided on the diagnosis and risks of the disease. We will continue to monitor routine labs. Additionally, She was counseled on routine diabetic eye exams, foot exams, and other preventive care. Lab Results Component Value Date HGBA1C 8.3 09/02/2022 Continue current regimen as recommended by endocrine F/u with endocrinology Albumin/cr ratio ordered today Assessment & Plan (09/02/2022 10:58 AM CANVASS MANAGER): Chronic problem, improving but not at goal Current medications: Jardiance 25mg daily Ozempic 1 mg weekly--increased to 2mg today. Tresiba 50 units daily Discussed increasing activity. She & are planning to join gym. Hyperlipidemia associated with type 2 diabetes magdy hurt 03/12/2022 Assessment & Plan (10/05/2024 2:00 PM CANVASS MANAGER): Chronic problem, well controlled on current atorvastatin 20mg daily. Last lipid panel: 11/26/23 LDL=56, MG=207. Verified that she uses mychart. Aware to check results/results letter in [employer]. Will contact by phone if needed. Assessment & Plan (06/27/2024 9:28 AM CANVASS MANAGER): Chronic problem, well controlled on current atorvastatin 20mg daily. Last lipid panel: 11/26/23 LDL=56, EW=879. Assessment & Plan (11/26/2023 9:09 AM CDT): Chronic problem, well controlled on current atorvastatin 20mg daily. Last lipid panel: 11/14/22 LDL=61, RU=809. Will update labs today. Verified that she uses mychart. Aware to check results/results letter in [employer]. Will contact by phone if needed. Assessment & Plan (07/14/2023 11:03 AM CANVASS MANAGER): Chronic problem, well controlled on current atorvastatin 20mg daily. Last lipid panel: 11/14/22 LDL=61, XH=039. No changes at this time. Assessment & Plan (01/22/2023 3:07 PM CDT): Chronic, well controlled Low fat Low cholesterol diet Exercise Continue statin therapy with Atorvastatin Assessment & Plan (11/13/2022 2:39 PM CDT): Lab Results Component Value Date LDLCALC 44 11/01/2018 Continue atorvastatin 20mg daily Assessment & Plan (09/01/2022 1:14 PM CANVASS MANAGER): Chronic problem, well controlled on current atorvastatin 20mg daily. 03/13/22 LDL=62, NO=051. No changes at this time. Assessment & Plan (03/13/2022 1:14 PM CDT): Chronic problem. On statin therapy, no changes. Encounter for wellness examination 08/13/2021 Assessment & Plan (11/13/2022 9:13 PM CDT): Ordered CBC, cmp, lipid, TSH Colonoscopy: referral placed Pap smear: Continue following with Ob Mammo: Referral given Follow-up in 1 year for annual Assessment & Plan (08/13/2021 4:32 PM CANVASS MANAGER): Ordered CBC, cmp, lipid, HIV, hep c, TSH Flu given today Colonoscopy: will get records. Got done 2 years ago and was told she was fine for 10 years Pap smear:Ob referral given Mammo: had done 03/04/2021 according to care everywhere. Birads 1 w/ repeat in 1 year. Osteopenia 08/13/2021 Chronic pain of both shoulders 08/13/2021 Assessment & Plan (09/24/2021 11:59 AM CANVASS MANAGER): Would like to monitor for now If pain develops will consider imaging at that time No longer need physical therapy Assessment & Plan (08/13/2021 3:10 PM CANVASS MANAGER): Likely from osteoarthritis Agreed to try physical therapy and anti-inflammatory meds. If no improvement will do an xray. If abnormal will send to orthopedics F/u in 6 weeks Acquired hypothyroidism 03/21/2021 Assessment & Plan (10/05/2024 2:00 PM CANVASS MANAGER): Chronic problem. Clinically & biochemically euthyroid. Currently taking levothyroxine 125mcg. Taking at bedtime (at least 4 hours after eating but taking with other medications). Verified that she uses mychart. Aware to check results/results letter in [employer]. Will contact by phone if needed. Assessment & Plan (06/27/2024 9:43 AM CANVASS MANAGER): Chronic problem. Clinically & biochemically euthyroid. Currently taking levothyroxine 125mcg. Taking at bedtime (at least 4 hours after eating but taking with other medications). Assessment & Plan (11/26/2023 9:32 AM CDT): Chronic problem. Currently taking levothyroxine 125mcg. Taking at bedtime (at least 4 hours after eating but taking with other medications). Discussed need to take 30-60 min before any other food//drink/medications. Plans to start walking dogs once heals from hip surgery. Will update TFTs today. Verified that she uses mychart. Aware to check results/results letter in [employer]. Will contact by phone if needed. Assessment & Plan (07/14/2023 11:26 AM CANVASS MANAGER): Chronic problem. Currently taking levothyroxine 125mcg. Taking at bedtime (at least 4 hours after eating). Discussed need to take 30-60 min before any other food//drink/medications. Will update TFTs today. Verified that she uses mychart. Aware to check results/results letter in [employer]. Will contact by phone if needed. Assessment & Plan (01/22/2023 3:03 PM CDT): Chronic, well controlled Continue Levothyroxine 125 mcg daily Assessment & Plan (11/13/2022 2:40 PM CDT): Lab Results Component Value Date TSH 1.13 07/16/2022 Continue Synthroid 125 mcg Assessment & Plan (07/16/2022 10:51 AM CANVASS MANAGER): Check TSH today. Continue current medication. . Please take levothyroxine on an empty stomach. This means 1 hour before eating or 2 hours after eating. Food in the stomach will interfere with absorption of the levothyroxine. Calcium, antacids and iron supplements will also interfere with the absorption of levothyroxine. Please take these at a different time of the day F/u [address] Robertson for physical and recheck on labs Assessment & Plan (08/13/2021 3:12 PM CANVASS MANAGER): Stable TSh ordered today Continue levothyroxine as recommended by endocrine Assessment & Plan (03/21/2021 4:24 PM CDT): Continue levothyroxine current dose Patient of the importance of taking the medication on a empty stomach Left bundle branch block 11/01/2018 Assessment & Plan (11/01/2018 4:48 AM CDT): EKG consistent with left bundle branch block which per patient's report is a new finding Previously had cardiac stress test and echocardiogram that for normal. No reported history of heart attacks in the past. Will admit to telemetry monitoring. Continue with aspirin and Nitro-Bid. Patient currently on statin Being telemetry monitoring Trend troponins Cardiology consulted a.m. Neuropathy 08/14/2015 Assessment & Plan (11/13/2022 2:44 PM CDT): Not at all the time. Last a short period of time Gastroesophageal reflux disease without esophagi tis 01/09/2015 Hyperlipidemia with target LDL less than 70 04/2015 Overview (08/13/2021): Diagnosis color television console monitor utility for ICD-10 conversion Assessment & Plan (11/12/2022 6:57 AM CDT): Lab Results Component Value Date LDLCALC 44 11/01/2018 Continue atorvastatin 20 mg daily Assessment & Plan (10/24/2021 2:27 PM CDT): Chronic problem. On statin therapy, no changes. Vitamin D deficiency 01/09/2015 S/P total hysterectomy and B SO (bilateral salpingo-oophorectomy) 01/06/2013 Family history of malignant neoplasm of breast 1 Attention deficit disorder 01/18/2008 Assessment & Plan (11/13/2022 2:43 PM CDT): Stable / clinically quiescent. Will continue to monitor. Resolved Problems Problem Noted Date Diagnosed Date Resolved Date Encounter for screening colonoscopy 04/16/2023 06/28/2023 Lower abdominal pain 07/16/2022 023 Assessment & Plan (07/16/2022 10:58 AM CANVASS MANAGER): Nonspecific right mid abdominal pain/ colicky. Pt states she is up to date on colon cancer screening, having had it done in [place]. Will get us record of it. Denies any accompanying symptoms or worsening of abdominal pain although it has been fairly consistent/ chronic. May continue to monitor symptoms for now . Will recheck cmp. She still has gallbladder, but symptoms are not consistent with gallbladder pain. Does not have ovaries or uterus. Will schedule for physical with Dr. Robertson in 1 month for recheck. Thyroid disease 11/01/2018 07/16/2022 Assessment & Plan (11/01/2018 4:43 AM CDT): Continue with Synthroid. Diabetes mellitus 11/01/2018 07/16/2022 Assessment & Plan (03/13/2022 1:36 PM CDT): Chronic problem, not at goal. FBG are reasonable so postprandials are probably high. Start checking some sugars later in the day. She declines medication change, although we reviewed that her A1c has not been improving on this regimen (and in fact is going up). Also discussed that if she does have to undergo breast surgery, ideally her A1c would be better controlled pre-op. She understands but does not want to change at this time. Next step would be increasing Ozempic and/or adding low dose SFU. She is open to considering this next visit if no improvement. Assessment & Plan (10/24/2021 2:23 PM CDT): Chronic problem, not at goal. FBG in good range so likely PPG are elevated. She feels her stress level will be improving with home sale and she plans to start regular pool exercise so does not want to adjust medications today. Next visit if persists elevated then will discuss adjustment. Recommend she start checking some HS readings so she can monitor her postprandial sugars. Assessment & Plan (09/24/2021 12:00 PM CANVASS MANAGER): The patient was counseled on a heart-healthy, diabetic-friendly diet, as well as life-style modification. Education provided on the diagnosis and risks of the disease. We will continue to monitor routine labs. Additionally, She was counseled on routine diabetic eye exams, foot exams, and other preventive care. Most recent A1c on file:8 Has an appointment in October with endocrine Continue regimen F/u in 3 months Assessment & Plan (08/13/2021 3:14 PM CANVASS MANAGER): The patient was counseled on a heart-healthy, diabetic-friendly diet, as well as life-style modification. Education provided on the diagnosis and risks of the disease. We will continue to monitor routine labs. Additionally, She was counseled on routine diabetic eye exams, foot exams, and other preventive care. A1c 8.0 in March Continue current regimen as recommended by endocrine F/u with endocrinology Albumin/cr ratio ordered today Assessment & Plan (03/21/2021 4:25 PM CDT): Hba1c was Lab Results Component Value Date HGBA1C 8.0 03/21/2021 today, indicating suboptimal DM control Goals blood sugars of 120-160 and Hba1c under 7 % was explained. 1800 calorie, consistent carb diet recommended, no more than 3-45 grams of carbs per meal, avoiding concentrated sweet drinks and rapid absorption carbs. 25-45 min daily aerobic and resistance exercise recommended Prevention and treatment of hyypoglcyemia discussed. Blood glucose monitoring with fingers sticks. Continue current regimen with Jardiance, Ozempic and Tresiba Patient to work on diet and exercise If glucoses start dropping in the mornings, or persistent episodes of hypoglycemia, will need adjustment of the dose of Tresiba Assessment & Plan (11/01/2018 4:44 AM CDT): Hold oral hypoglycemics. Will start o obtain units of Lantus b.i.d. Low-dose insulin sliding scale Burning sensation of throat 11/01/2018 07/16/2022 Assessment & Plan (11/01/2018 4:54 AM CDT): Patient complains of burning sensation in the throat. D-dimers were negative. Patient is not a smoker. Chest x-ray is unremarkable with normal mediastenum Symptoms less likely to be related to aortic dissection. Possible differential diagnosis: GERD versus esophageal spasm Start on famotidine Arthritis of left hip 03/04/20162022 Overweight 03/04/2016 09/01/2022 PCOS (polycystic ovarian syndrome) 01/09/2015 07/16/2022 Complex endometrial hyperplasia with atypia 01/06/2013 07/16/2022 Immunizations Immunization Administration Dates Next Due Influenza, Quadrivalent, Hig h Dose, Preservative Free, Intrr 07/16/2022,08/13/2021,07/17/2020 Influenza, Quadrivalent, Spl it, Preservative Free, Intramuscular 05/26/2016,05/15/2014 Influenza, Split 05/12/2008 Influenza, Unspecified 03/03/2021(Deferred: Marivel ent Refused) Pneumococcal Conjugate PCV 13 05/15/2014 Pneumococcal Polysaccharide PPV23 01/20/2020 ZOSTER LIVE 06/12/2014 Social History Tobacco Use Types Packs/Day Years Used Date Smoking Tobacco: Never Smokeless Tobacco: Never Tobacco Cessation:Counseling Given: Not Answered Alcohol Use Standard Drinks/Week Comments Yes 0 (1 standard drink = 0.6 oz pur e alcohol) rarely PHQ-2 Answer Date Recorded PHQ-2 Total Score (If total score is 3 or more points, staff should administer the PHQ-9) 0 04/22/2023 Comments No Sex and Gender Information Value Date Recorded Sex Assigned at Not on file Legal Sex Female 7:32 PM CANVASS MANAGER Gender Identity Female 08/09/2021 5:50 PM CANVASS MANAGER Sexual Orientation Straight 08/09/2021 5: 50 PM CANVASS MANAGER Last Filed Vital Signs Vital Sign Reading Time Taken Comments Blood Pressure 110/78 10/05/2024 1:33 PM CANVASS MANAGER Pulse 85 10/05/2024 1:33 PM CANVASS MANAGER Temperature 36.1 C (96.9 F) 11/01/2018 3:27 PM CDT Respiratory Rate 18 10/05/2024 1:33 PM CANVASS MANAGER Oxygen Saturation 97% 06/20/2024 11:01 AM CANVASS MANAGER Inhaled Oxygen Concentration - - Weight 93.9 kg (207 lb) 10/05/2024 1:33 PM CANVASS MANAGER Height 160 cm (5' 2.99) 10/05/2024 1:33 PM CANVASS MANAGER Body Mass Index 36.68 10/05/2024 1:33 PM CANVASS MANAGER Plan of Treatment Not on file Procedures Procedure Name Priority Date/Time Associated Diagnosis Comments EGFR Routine 10/05/2024 2:25 PM CANVASS MANAGER Type 2 diabetes mellitus with hyperglycemia, with long-term current use of insulin (HCC) ALBUMIN CREATININE RATIO, URINE Routine 10/05/2024 2:25 PM CANVASS MANAGER Type 2 diabetes mellitus with hyperglycemia, with long-term current use of insulin (HCC) COMPREHENSIVE METABOLIC PANEL Routine 10/05/2024 2:25 PM CANVASS MANAGER Type 2 diabetes mellitus with hyperglycemia, with long-term current use of insulin (HCC) LIPID PANEL Routine 10/05/2024 2:25 PM CANVASS MANAGER Type 2 diabetes mellitus with hyperglycemia, with long-term current use of insulin (HCC) Hyperlipidemia associated with type 2 diabetes mellitus (HCC) TSH Routine 10/05/2024 2:25 PM CANVASS MANAGER Acquired hypothyroidism T4, FREE Routine 10/05/2024 2:25 PM CANVASS MANAGER Acquired hypothyroidism POCT GLUCOSE Routine 10/05/2024 1:37 PM CANVASS MANAGER Type 2 diabetes mellitus with hyperglycemia, with long-term current use of insulin (HCC) POCT HEMOGLOBIN A1C Routine 10/05/2024 1 :37 PM CANVASS MANAGER Type 2 diabetes mellitus with hyperglycemia, with long-term current use of insulin ([facility]) HM DIABETES EYE EXAM Routine 06/28/2024 8:12 AM CANVASS MANAGER HEPATITIS C ANTIBODY Routine 11/14/2022 8:15 AM CDT Healthcare maintenance SCREENING MAMMOGRAM W ELEAZAR Schedule Routine, Read Routine (OP Routine) 03/28/2022 DEXA AXIAL SKELETON BONE DENSITY 1 OR MORE SITES Schedule Routine, Read Routine (OP Routine) 08/21/2021 12:18 PM CANVASS MANAGER Osteopenia, unspecified location Post-menopausal from Last 3 Months or Most Recently Relevant to Health Maintenance Results * eGFR (10/05/2024 2:25 PM CANVASS MANAGER) eGFR 62 >=60 mL/min/1. 73 m2 Comment: Interpretive Data Reference Interval Normal >/= 90 mL/min/1.73m2 Mildly decreased* 60 - 89 mL/min/1.73m2 Mildly to moderately decreased 45 - 59 mL/min/1.73m2 Moderately to severely decreased 30 - 44 mL/min/1.73m2 Severely decreased 15 - 29 mL/min/1.73m2 Kidney Failure < 15 mL/min/1.73m2 *Relative to young adult level Estimated glomerular filtration rate is determined by the 2020 CKD-EPI equation recommended by the National Kidney Foundation (A Unifying Approach to GFR Estimation: Recommendations of the NKF-ASK Task Force on Reassessing the Inclusion of Race in Diagnosing Kidney Disease, JASN 2020). The CKD-EPI equation should not be used for patients with unstable renal function and has not been validated in children and those over 70. Current interpretive data was last reviewed 2021. Blood 10/05/2024 2:25 PM CANVASS MANAGER 10/05/2024 9:36 PM CANVASS MANAGER us Nathalie Zabala NP LAB BLOOD ORDERABLES Myranda l Result RYAN [address] [address] Department [place] [address] * Albumin Creatinine Ratio, Urine (10/05/2024 2:25 PM CANVASS MANAGER) Albumin Ur <12.0 mg/L Comment: Interpretive Data No reference range established. Current interpretive data was last revised 2018. Creatinine Ur 92.5 mg/dL [facility] BOSWELL Comment: Interpretive Data No reference range established. Current interpretive data was last revised 2018. Albumin Creatinine Ratio, Ur <13 1 - 29 mg/g [facility] B[facility] Urine 10/05/2024 2:25 PM CANVASS MANAGER 10/05/2024 8:39 PM CANVASS MANAGER us Nathalie R. Schleeper LIFE SCIENCES DIRECTOR LAB URINE ORDERABLES Myranda l Result Performing Organization Address [facility] Co de Phone Number RYAN BOSWELL [phone] [facility] [place] [address] * (ABNORMAL) TSH (10/05/2024 2:25 PM CANVASS MANAGER) Thyroid Stimulating Hormone 0.26(L) 0.30 - 4.20 mcIUnit/mL Blood 10/05/2024 2:25 PM CANVASS MANAGER 10/05/2024 8:39 PM CANVASS MANAGER us Nathalieevette Zabala LIFE SCIENCES DIRECTOR LAB BLOOD ORDERABLES Myranda l Result Performing Organization Address [facility] Co de Phone Number RYAN [phone] [address] [facility] [place] [address] * T4, free (10/05/2024 2:25 PM CANVASS MANAGER) Free T4 1.50 0.90 - 1.70 ng/dL Blood 10/05/2024 2:25 PM CANVASS MANAGER 10/05/2024 8:39 PM CANVASS MANAGER us Nathalieevette Zabala LIFE SCIENCES DIRECTOR LAB BLOOD ORDERABLES Myranda l Result Performing Organization Address [facility] Co de Phone Number RYAN [phone] [place] [address] * (ABNORMAL) Lipid panel (10/05/2024 2:25 PM CANVASS MANAGER) Cholesterol 108 30 - 199 mg/dL Comment: Interpretive Data Ages < or = 19 years Acceptable: <170 mg/dL Borderline high: 170-199 mg/dL High: >or= 200 mg/dL Ages > or = 20 years Desirable: <200 mg/dL Borderline high: 200-239 mg/dL High: >or= 240 mg/dL Literature References: 1. Expert Panel on Integrated Guidelines for Cardiovascular Health and Risk Reduction in Children and Adolescents. Pediatrics 2011;128:S213 2. NCEP Expert Panel. Circulation 2004;110:227 Current Interpretive Data was last revised on 2018. Triglycerides 385(H) <=149 mg/dL [facility]YAN Comment: Interpretive Data Ages < or = 9 years Acceptable: <75 mg/dL Borderline high: 75-99 mg/dL High: >or= 100 mg/dL Ages 10 to 20 years Acceptable: <90 mg/dL Borderline high: 90-129 mg/dL High: >or= 130 mg/dL Ages > or = 20 years Desirable: <150 mg/dL Borderline high: 150-199 mg/dL High: 200-499 mg/dL Very high: >or= 499 mg/dL Literature References: 1. Expert Panel on Integrated Guidelines for Cardiovascular Health and Risk Reduction in Children and Adolescents. Pediatrics 2011;128:S213 2. NCEP Expert Panel. Circulation 2004;110:227 Current Interpretive Data was last revised on 2018. HDL 35(L) >=40 mg/dL [facility] Comment: Interpretive Data Ages < or = 19 years Acceptable: >45 mg/dL Borderline low: 40-45 mg/dL Low: <40 mg/dL Ages > or = 20 years Desirable: >or= 60 mg/dL Low: <40 mg/dL Literature References: 1. Expert Panel on Integrated Guidelines for Cardiovascular Health and Risk Reduction in Children and Adolescents. Pediatrics 2011;128:S213 2. NCEP Expert Panel. Circulation 2004;110:227 Current Interpretive Data was last revised on 2018. LDL, calculated 20 <=129 mg/dL [facility]AN Comment: Interpretive Data Ages < or = 19 years Acceptable: <110 mg/dL Borderline high: 110-129 mg/dL High: >or= 130 mg/dL Ages > or = 20 years Optimal: <100 mg/dL Near optimal: 100-129 mg/dL Borderline high: 130-159 mg/dL High: >160 mg/dL Calculated using the Clay LDL-C estimating equation. This equation was implemented on 2024. Prior to this date LDL-C was estimated using the Friedewald equation. Literature References: 1. Expert Panel on Integrated Guidelines for Cardiovascular Health and Risk Reduction in Children and Adolescents. Pediatrics 2011;128:S213 2. NCEP Expert Panel. Circulation 2004;110:227 3. Clay Thomas et al. LAYTON Cardiol. 2020 December 01;5(5):540-548. doi: 10.1001/jamacardio.2020.0013 Current Interpretive Data was last revised on 2024. Non-HDL Cholesterol 73 mg/dL [facility] Comment: Interpretive Data Ages < or = 19 years Acceptable: <120 mg/dL Borderline high: 120-144 mg/dL High: >145 mg/dL Ages > or = 20 years When triglycerides are >200 mg/dL, Non-HDL cholesterol is a secondary target of therapy with treatment goals that are 30 mg/dL greater than the LDL cholesterol target. Literature References: 1. Expert Panel on Integrated Guidelines for Cardiovascular Health and Risk Reduction in Children and Adolescents. Pediatrics 2011;128:S213 2. NCEP Expert Panel. Circulation 2004;110:227 Current Interpretive Data was last revised on 2018. Chol/HDL ratio 3 [facility] Blood 10/05/2024 2:25 PM CANVASS MANAGER 10/05/2024 8:39 PM CANVASS MANAGER Nathalie Zabala LIFE SCIENCES DIRECTOR LAB BLOOD ORDERABLES Myranda l Result [facility] [id number] [address] Department of Laboratories [place] [phone] * Comprehensive metabolic panel (10/05/2024 2:25 PM CANVASS MANAGER) Sodium 140 135 - 145 mmol/L Potassium, pl 4.1 3.3 - 4.9 mmol/L [facility] Chloride 103 97 - 110 mmol/L [facility] CO2 24 22 - 32 mmol/L [facility] Anion gap 13 2 - 15 mmol/L [facility] BUN 15 6 - 25 mg/dL [facility] Creatinine 0.98 0.60 - 1.10 mg/dL [facility] Glucose 165 70 - 199 mg/dL [facility] Comment: Interpretive Data Fasting glucose >/= 126 mg/dl is diagnostic for diabetes. Fasting is defined as no caloric intake for at least 8 hours. Fasting glucose between 100 mg/dl to 125 mg/dl is diagnostic of prediabetes. In a patient with classic symptoms of hyperglycemia or hyperglycemic crisis, a random glucose >/= 200 mg/dl is diagnostic for diabetes. In the absence of unequivocal hyperglycemia, results should be confirmed by repeat testing. The classification and Diagnosis of Diabetes Diabetes Care 2021; 46: S19-S40. Current interpretive data was last revised 2022. Calcium 9.0 8.5 - 10.3 mg/dL [facility] Bilirubin, total 0.2 0.1 - 1.2 mg/dL [facility] Protein, pl 6.9 6.5 - 8.5 g/dL [facility] Albumin 4.2 3.5 - 5.0 g/dL [facility] Alk phos 96 40 - 130 Units/L [facility] ALT 22 7 - 45 Units/L [facility] Comment:Lipemia present. Res ults may be affected. AST 22 10 - 45 Units/L [facility] Comment:Lipemia present. Res ults may be affected. Blood 10/05/2024 2:25 PM CANVASS MANAGER 10/05/2024 8:39 PM CANVASS MANAGER us Nathalie Zabala NP LAB BLOOD ORDERABLES Myranda l Result [facility] [address] [address] Department [place] [address] * (ABNORMAL) POCT hemoglobin A1c (10/05/2024 1:37 PM CANVASS MANAGER) Hemoglobin A1C, POC 6.6 4.0 - 5.6 % Blood 10/05/2024 1:37 PM CANVASS MANAGER us Nathalie Zabala NP POINT OF CARE TEST ORDERA BLES Final Result * (ABNORMAL) POCT glucose (10/05/2024 1:37 PM CANVASS MANAGER) Glucose Blood, POC 169 mg/dL Blood 10/05/2024 1:37 PM CANVASS MANAGER us Nathalie Zabala NP POINT OF CARE TEST ORDERA BLES Final Result * HM DIABETES EYE EXAM (06/28/2024 8:12 AM CANVASS MANAGER) us Historical Provider HEALTH MAINTENANCE Final Result * Hepatitis C antibody (11/14/2022 8:15 AM CDT) Hep C Ab NON-REACTI VE NON-REACT SAMIRA [facility] SIGNAL TO CUT-OFF 0.03 <1.00 [facility] Comment: HCV antibody was non-reactive. There is no laboratory evidence of HCV infection. In most cases, no further action is required. However, if recent HCV exposure is suspected, a test for HCV RNA (test code 78440) is suggested. For additional information please refer to http://education.Extenda-Dent/faq/QXO49k7 (This link is being provided for informational/ educational purposes only.) Blood 11/14/2022 8:15 AM CDT 11/14/2022 8:16 AM CDT Narrative [facility] - 11/20/2022 12:33 PM CDT FASTING:YES FASTING: YES Silvia Bland MD LAB MICROBIOLOGY - [facility] ORDERABLES Final Result [facility] [address] [place] [address] * Screening Mammogram W Eleazar (03/28/2022) Anatomical Region Laterality Modality Breast N/A Mammography Historical Provider IMG MAMMO PROCEDURES Edit ed Result - Final * Dexa Axial Skeleton Bone Density 1 or 2 Site (08/21/2021 12:18 PM CANVASS MANAGER) Anatomical Region Laterality Modality Body N/A Other 08/21/2021 1:21 PM CANVASS MANAGER Narrative 08/21/2021 1:22 PM CANVASS MANAGER EXAM DESCRIPTION: DEXA AXIAL SKELETON BONE DENSITY 1 OR MORE SITES REASON FOR STUDY: 65 y/o year old F with given history of screening. Form Tamping Machine Operator/Model: [employer] (S/N [id number]) CLINICAL INFORMATION: Current height: 63 inches Maximum height: 63 inches Weight: 230 pounds Risk factors: None COMPARISON: None available. FINDINGS: AP LUMBAR SPINE L1-L4: Total BMD is 1.063 g/cm2 T-score is 0.1 LEFT HIP: Total BMD is 0.941 g/cm2 T-score is 0.0 Femoral neck BMD is 0.716 g/cm2 T-score is -1.2 IMPRESSION: Low bone mass. Fracture risk assessment (FRAX): 10 year risk for a major osteoporotic fracture is 7.9 % 10 year risk for a hip fracture is 0.7 % The FRAX tool has not been validated in patients currently or previously treated with pharmacotherapy for osteoporosis. In such patients, clinical judgement must be exercised in interpreting FRAX scores as the fracture risk may be overestimated. REFERENCE: Bone mineral density: Normal (T-score above or = -1.0) Low bone mass (T-score between -1.0 and -2.5) replaces the previously used term osteopenia Osteoporosis (T-score = or below -2.5) Medical evaluation for secondary causes of low bone mineral density may be appropriate. FRAX is a World Health Organization validated fracture risk assessment tool that calculates a person's 10 year probability of a major osteoporosis related fracture and hip fracture. According to the National Osteoporosis Foundation guidelines, postmenopausal women and men age 50 or older with low bone mass and a 10 year probability of a major osteoporosis related fracture = or greater than 20% or a 10 year probability of a hip fracture = or greater than 3% should be considered for treatment. For further information, including treatment recommendations, please refer to the 2013 ISCD Official Positions (http://www.iscd.org) and the NOF's Clinician's Guide to Prevention and Treatment of Osteoporosis (http://www.nof.org/professionals/clinical-guidelines) THIS IS AN ELECTRONICALLY VERIFIED FINAL REPORT 08/21/2021 1:22 PM - Electronically signed by Viri Powers M.D. TB: TB Report ID: [id number] Reading Location: [facility] Procedure Note Viri Powers MD - 08/21/2021 EXAM DESCRIPTION: DEXA AXIAL SKELETON BONE DENSITY 1 OR MORE SITES REASON FOR STUDY: 65 y/o year old F with given history ofscreening. Form Tamping Machine Operator/Model: [employer] (S/N [id number]) CLINICAL INFORMATION: Current height: 63 inches Maximum height: 63 inches Weight: 230 pounds Risk factors: None COMPARISON: None available. FINDINGS: AP LUMBAR SPINE L1-L4: Total BMD is 1.063 g/cm2 T-score is 0.1 LEFT HIP: Total BMD is 0.941 g/cm2 T-score is 0.0 Femoral neck BMD is 0.716 g/cm2 T-score is -1.2 IMPRESSION: Low bone mass. Fracture risk assessment (FRAX): 10 year risk for a major osteoporotic fracture is 7.9 % 10 year risk for a hip fracture is 0.7 % The FRAX tool has not been validated in patients currently or previously treated with pharmacotherapy for osteoporosis. In such patients, clinical judgement must be exercised in interpreting FRAX scores as the fracturerisk may be overestimated. REFERENCE: Bone mineral density: Normal (T-score above or = -1.0) Low bone mass (T-score between -1.0 and -2.5) replaces thepreviously used term osteopenia Osteoporosis (T-score = or below -2.5) Medical evaluation for secondary causes of low bone mineral density may be appropriate. FRAX is a World Health Organization validated fracture risk assessmenttool that calculates a person's 10 year probability of a major osteoporosisrelated fracture and hip fracture. According to the National OsteoporosisFoundation guidelines, postmenopausal women and men age 50 or older with low bonemass and a 10 year probability of a major osteoporosis related fracture = or greater than 20% or a 10 year probability of a hip fracture = or greaterthan 3% should be considered for treatment. For further information, including treatment recommendations, please referto the 2013 ISCD Official Positions (http://www.iscd.org) and the NOF's Clinician's Guide to Prevention and Treatment of Osteoporosis (http://www.nof.org/professionals/clinical-guidelines) THIS IS AN ELECTRONICALLY VERIFIED FINAL REPORT 08/21/2021 1:22 PM - Electronically signed by Viri Powers M.D. TB: TB Report ID: [id number] Reading Location: [id number] Silvia Bland MD IMG DXA PROCEDURES Fi nal Result from Last 3 Months or Most Recently Relevant to Health Maintenance Insurance [facility] MEDICARE [facility] MEDICARE Address: [address] [address] [place] [address] [facility] MEDICARE [facility] MEDICARE Address: [address] [address] [place] [address] Advance Directives For more information, please contact: [phone] * Full Code (Latest Code Status on File) Date Activated Date Inactivated Comments 11/01/2018 12:35 AM 11/01/2018 10:41 PM Care Teams Business Process Consultant Relationship Specialty Start Date End Date Silvia Bland MD 2 [facility] [address] [place] [address] PCP - General Family Medicine 08/13/21
--- OUTSIDE RECORDS SUMMARY | 2025-01-02 11:04 | XMS_ITS | Clinical Summary ---
Author Organization [facility] Address [address] [place] [address] Care Team Providers Care Trapeze Performer Name Role Phone Silvia Bland MD Primary Care Provide r Allergies Active Allergy Reactions Criticality Noted Date Comments Guaifenesin Other (See comments) High 04/11/2011 Mouth sores. Propoxyphene N-Acetaminophen Unknown 03/13/2022 Propoxyphene Napsylate Nausea And Vomiting 12/2009 Medications BD Ultra-Fine Short Pen Needle 31 gauge x 5/16 needleIndicati ons:Type 2 diabetes mellitus with hyperglycemia, with long-term current use of insulin ([facility]) Use to inject insulin once daily 100 each 3 11/07/19 23 Active aspirin 81 mg capsule Take 81 mg by mouth daily Active levothyroxine (SYNTHROID) 125 mcg tabletIndicati ons:Type 2 diabetes mellitus with hyperglycemia, with long-term current use of insulin (HCC) TAKE 1 TABLET(125 MCG) BY MOUTH DAILY 90 tablet 3 06/02/20 24 Active blood-glucose meter,continuo us (Dexcom G7 Peanut Cleaner) misc Activ e atorvastatin (LIPITOR) 20 mg tabletIndicati ons:Hyperlipid emia associated with type 2 diabetes mellitus (HCC) Take 1 tablet (20 mg total) by mouth daily 90 tablet 3 06/27/20 24 025 Active Ozempic 2 mg/dose (8 mg/3 mL) pen injector injectionIndic ations:Type 2 diabetes mellitus with hyperglycemia, with long-term current use of insulin ([facility]) INJECT 2MG UNDER THE SKIN ONCE A WEEK 3 mL 3 09/02/19 Active Dexcom G7 Sensor device USE PER IMPLEMENTATION CONSULTANT DIRECTIONS. CHANGE EVERY 10 DAYS. 09/02/19 Active TRESIBA 100 unit/mL (3 mL) pen for injectionIndic ations:type 2 diabetes mellitus Patient taking differently: 48-50 Units subcutaneously, Daily 15 mL 6 11/18/19 Active Jardiance 25 mg tabletIndicati ons:Type 2 diabetes mellitus with hyperglycemia, with long-term current use of insulin (HCC) TAKE 1 TABLET(25 MG) BY MOUTH DAILY 90 tablet 1 12/07/19 25 Active Jardiance 25 mg tabletIndicati ons:Type 2 diabetes mellitus with hyperglycemia, with long-term current use of insulin (HCC) TAKE 1 TABLET(25 MG) BY MOUTH DAILY 90 tablet 1 09/02/19 25 025 Discontinued Active Problems Problem Noted Date [...] Biotronik Edora Dual Pacemaker. Dx; CHB. DOI 04/13/2023[facility]. Biotronik remote monitoring. Assessment [...] 09/02/2022 Assessment & Plan (09/02/2022 10:34 AM OBSTETRICIAN AND GYNAECOLOGIST): Discussed healthy diet and importance of regular physical activity (20- 30min/day, 150min/wk). Recurrent major depression 07/16/2022 Assessment & Plan (07/16/2022 10:51 AM OBSTETRICIAN AND GYNAECOLOGIST): Discussed starting a new medication and pt [...] ENT Assessment & Plan (07/16/2022 10:55 AM OBSTETRICIAN AND GYNAECOLOGIST): Discussed that vertigo can be short term [...] 03/03 Assessment & Plan (10/05/2024 2:11 PM OBSTETRICIAN AND GYNAECOLOGIST): Chronic problem, A1c at goal and increased from 6.4% 06/27/24 to now 6.6%. wearing Dexcom G7 & no hypoglycemia. No changes at this time. Current medications: Jardiance 25mg daily Ozempic 2 mg weekly Tresiba 48-50 units daily Will update labs. Verified that she uses mychart. Aware to check results/results letter in SFOX. Will contact by phone if needed. UTD on DM eye exam (06/28/24 no DMR/EMILY Aguiar). Discussed with Verenice Palacios: Strive for [...] infection. Assessment & Plan (06/27/2024 9:56 AM OBSTETRICIAN AND GYNAECOLOGIST): Chronic problem, A1c at goal and improved [...] mychart. Aware to check results/results letter in Insightlyt. Will contact by phone if needed. UTD [...] infection. Assessment & Plan (07/14/2023 11:04 AM OBSTETRICIAN AND GYNAECOLOGIST): Chronic problem, improving but not at goal [...] today Assessment & Plan (09/02/2022 10:58 AM OBSTETRICIAN AND GYNAECOLOGIST): Chronic problem, improving but not at goal Current medications: Jardiance 25mg daily Ozempic 1 mg weekly--increased to 2mg today. Tresiba 50 units daily Discussed increasing activity. She & are planning to join gym. Hyperlipidemia associated with type 2 diabetes magdy hurt 03/12/2022 Assessment & Plan (10/05/2024 2:00 PM OBSTETRICIAN AND GYNAECOLOGIST): Chronic problem, well controlled on current atorvastatin 20mg daily. Last lipid panel: 11/26/23 LDL=56, DX=438. Verified that she uses mychart. Aware to check results/results letter in SFOX. Will contact by phone if needed. Assessment & Plan (06/27/2024 9:28 AM OBSTETRICIAN AND GYNAECOLOGIST): Chronic problem, well controlled on current atorvastatin 20mg daily. Last lipid panel: 11/26/23 LDL=56, CK=789. Assessment & Plan (11/26/2023 9:09 AM CDT): Chronic problem, well controlled on current atorvastatin 20mg daily. Last lipid panel: 11/14/22 LDL=61, ET=941. Will update labs today. Verified that she uses mychart. Aware to check results/results letter in Insight[employer]t. Will contact by phone if needed. Assessment & Plan (07/14/2023 11:03 AM OBSTETRICIAN AND GYNAECOLOGIST): Chronic problem, well controlled on current atorvastatin 20mg daily. Last lipid panel: 11/14/22 LDL=61, EO=795. No changes at this time. Assessment & Plan (01/22/2023 3:07 PM CDT): Chronic, well controlled Low fat Low cholesterol diet Exercise Continue statin therapy with Atorvastatin Assessment & Plan (11/13/2022 2:39 PM CDT): Lab Results Component Value Date LDLCALC 44 11/01/2018 Continue atorvastatin 20mg daily Assessment & Plan (09/01/2022 1:14 PM OBSTETRICIAN AND GYNAECOLOGIST): Chronic problem, well controlled on current atorvastatin 20mg daily. 03/13/22 LDL=62, XG=407. No changes at this time. Assessment & Plan (03/13/2022 1:14 PM CDT): Chronic problem. On statin therapy, no changes. Encounter for wellness examination 08/13/2021 Assessment & Plan (11/13/2022 9:13 PM CDT): Ordered CBC, cmp, lipid, TSH Colonoscopy: referral placed Pap smear: Continue following with Ob Mammo: Referral given Follow-up in 1 year for annual Assessment & Plan (08/13/2021 4:32 PM OBSTETRICIAN AND GYNAECOLOGIST): Ordered CBC, cmp, lipid, HIV, hep c, TSH Flu given today Colonoscopy: will get records. Got done 2 years ago and was told she was fine for 10 years Pap smear:Ob referral given Mammo: had done 03/04/2021 according to care everywhere. Birads 1 w/ repeat in 1 year. Osteopenia 08/13/2021 Chronic pain of both shoulders 08/13/2021 Assessment & Plan (09/24/2021 11:59 AM OBSTETRICIAN AND GYNAECOLOGIST): Would like to monitor for now If pain develops will consider imaging at that time No longer need physical therapy Assessment & Plan (08/13/2021 3:10 PM OBSTETRICIAN AND GYNAECOLOGIST): Likely from osteoarthritis Agreed to try physical therapy and anti-inflammatory meds. If no improvement will do an xray. If abnormal will send to orthopedics F/u in 6 weeks Acquired hypothyroidism 03/21/2021 Assessment & Plan (10/05/2024 2:00 PM OBSTETRICIAN AND GYNAECOLOGIST): Chronic problem. Clinically & biochemically euthyroid. Currently taking levothyroxine 125mcg. Taking at bedtime (at least 4 hours after eating but taking with other medications). Verified that she uses mychart. Aware to check results/results letter in Insightlyt. Will contact by phone if needed. Assessment & Plan (06/27/2024 9:43 AM OBSTETRICIAN AND GYNAECOLOGIST): Chronic problem. Clinically & biochemically euthyroid. Currently [...] mychart. Aware to check results/results letter in Insightlyt. Will contact by phone if needed. Assessment & Plan (07/14/2023 11:26 AM OBSTETRICIAN AND GYNAECOLOGIST): Chronic problem. Currently taking levothyroxine 125mcg. Taking at bedtime (at least 4 hours after eating). Discussed need to take 30-60 min before any other food//drink/medications. Will update TFTs today. Verified that she uses mychart. Aware to check results/results letter in Insightlyt. Will contact by phone if needed. Assessment & Plan (01/22/2023 3:03 PM CDT): Chronic, well controlled Continue Levothyroxine 125 mcg daily Assessment & Plan (11/13/2022 2:40 PM CDT): Lab Results Component Value Date TSH 1.13 07/16/2022 Continue Synthroid 125 mcg Assessment & Plan (07/16/2022 10:51 AM OBSTETRICIAN AND GYNAECOLOGIST): Check TSH today. Continue current medication. . 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 Pt states she is up to date on colon cancer screening, having had it done in [place]. Will get us record of it. Denies [...] sugars. Assessment & Plan (09/24/2021 12:00 PM OBSTETRICIAN AND GYNAECOLOGIST): The patient was counseled on a heart-healthy, [...] months Assessment & Plan (08/13/2021 3:14 PM OBSTETRICIAN AND GYNAECOLOGIST): The patient was counseled on a heart-healthy, [...] with fingers sticks. Continue current regimen with Derrek Toth and Joelba Patient to work on diet and exercise [...] Complex endometrial hyperplasia with atypia 01/06/2013 07/16/2022 Encounters Date Type Department Care Team Description 12/27/2024 7:30 AM CDT Ancillary Procedure [facility] Cardiology [address] [facility] [address] [place] [phone] Cardiac pacemaker in situ; CHB (complete heart block) (HCC) 10/07/2024 Results Follow-Up [facility] Diabetes and Endocrinology [address] [place] [phone] Nathalie Zabala, JESUS T4, free, TSH, Lipid panel, Additional followed-up results: 3 10/05/2024 2:25 PM OBSTETRICIAN AND GYNAECOLOGIST - 10/05/2024 11:59 PM OBSTETRICIAN AND GYNAECOLOGIST Hospital Encounter [address] [id number] Acquired hypothyroidism; Type 2 diabetes mellitus with hyperglycemia, with long-term current use of insulin (HCC); Hyperlipidemia associated with type 2 diabetes mellitus (HCC) Discharge Disposition: Discharge to home or self care 10/05/2024 2:15 PM OBSTETRICIAN AND GYNAECOLOGIST Lab [facility] Outpatient Lab at [address] [phone] Acquired hypothyroidism (Primary Dx) 10/05/2024 1:30 PM OBSTETRICIAN AND GYNAECOLOGIST Office Visit [facility] Diabetes and Endocrinology [address] [place] [phone] Nathalie Zabala NP Type 2 diabetes mellitus with hyperglycemia, with long-term current use of insulin (HCC) (Primary Dx); Hyperlipidemia associated with type 2 diabetes mellitus (HCC); Acquired hypothyroidism from Last 3 Months Immunizations Immunization Administration Dates Next Due Influenza, Quadrivalent, Hig h Dose, Preservative Free, Intrr 07/16/2022,08/13/2021,07/17/2020 Influenza, Quadrivalent, Spl it, Preservative Free, Intramuscular 05/26/2016,05/15/2014 Influenza, Split 05/12/2008 Influenza, Unspecified 03/03/2021(Deferred: Marivel ent Refused) Pneumococcal Conjugate PCV 13 05/15/2014 Pneumococcal Polysaccharide PPV23 01/20/2020 ZOSTER LIVE 06/12/2014 Surgical History Surgery Date Site/Laterality Comments ABDOMINAL SURGERY lap band, and then removed HYSTERECTOMY SKIN BIOPSY 08/03/2013 - 08/02/2014 Left L forehead, pre-malignant spot removed CARDIAC PACEMAKER PLACEMENT 04/13/2023 BARIATRIC SURGERY lapband installed 20 07 later removed Medical History Medical History Date Comments Arthritis Diabetes mellitus (HCC) Thyroid disease Type 2 diabetes mellitus (HCC) Complex endometrial hyperplasia with atypia 01/2013 PCOS (polycystic ovarian syndrome) 01/09/2015 Vertigo Anxiety Heart disease Pacemaker Apr 2023 Family History Medical History Relation Name Comments Alcohol abuse Brother 2 Moise Coronary artery disease Father Moise F Day Diabetes Father Moise F Day Diabetes type II Father Moise F Day Heart attack Father Moise F Day Hypertension Father Moise F Day Obesity Father Moise F Day Heart attack Father's Sister Rafia MQuality Heart disease Father's Sister Rafia MQuality Hypertension Father's Sister Rafia MQuality Ovarian cancer Mother Cancer Paternal Grandmother Paty Brizuela Diabetes Sister 1 Diabetes Sister 2 Sondra Linn Miscarriages / Stillbirths Sister 2 Sondra Linn Stroke Sister 2 Sondra Linn Vision loss Sister 2 Sondra Linn Relation Name Status Comments Brother 1 Alive Brother 2 Moise Father Moise F Day Father's Sister Rafia MQuality Mother Paternal Grandmother Paty Brizuela Sister 1 Sister 2 Sondra Linn Social History Tobacco Use Types Packs/Day Years [...] on file Legal Sex Female 7:32 PM OBSTETRICIAN AND GYNAECOLOGIST Gender Identity Female 08/09/2021 5:50 PM OBSTETRICIAN AND GYNAECOLOGIST Sexual Orientation Straight 08/09/2021 5: 50 PM OBSTETRICIAN AND GYNAECOLOGIST Obstetrics History Last Filed Vital Signs Vital Sign Reading Time Taken Comments Blood Pressure 110/78 10/05/2024 1:33 PM OBSTETRICIAN AND GYNAECOLOGIST Pulse 85 10/05/2024 1:33 PM OBSTETRICIAN AND GYNAECOLOGIST Temperature 36.1 C (96.9 F) 11/01/2018 3:27 PM CDT Respiratory Rate 18 10/05/2024 1:33 PM OBSTETRICIAN AND GYNAECOLOGIST Oxygen Saturation 97% 06/20/2024 11:01 AM OBSTETRICIAN AND GYNAECOLOGIST Inhaled Oxygen Concentration - - Weight 93.9 kg (207 lb) 10/05/2024 1:33 PM OBSTETRICIAN AND GYNAECOLOGIST Height 160 cm (5' 2.99) 10/05/2024 1:33 PM OBSTETRICIAN AND GYNAECOLOGIST Body Mass Index 36.68 10/05/2024 1:33 PM OBSTETRICIAN AND GYNAECOLOGIST Plan of Treatment Health Maintenance Due Date Last Done Comments Colon Cancer Screening-Colonoscopy 1955 DTaP/Tdap/Td Vaccine (1 - Tdap) 1964 Hepatitis B Screening 1971 Zoster Vaccine (2 of 3) 08/07/2014 06/12/2014 Breast Cancer Screening-Mammogram 03/28/2023 03/28/2022, 03/12/2022, 03/04/2021, Additional history exists Osteoporosis Screening-Bone Density Scan 08/21/2023 08/21/2021, 03/30/2019 Well Visit 65+ 11/14/2023 11/13/2022, 08/13/2021 Covid-19 Vaccine (3 - 2023-2 5 season) 2024 10/14/2021, 10/05/2020 Depression Screening 11/25/2024 11/26/2023, 04/22/2023, 11/13/2022, Additional history exists Fall Risk Assessment 11/25/2024 11/26/2023, 04/22/2023, 11/13/2022, Additional history exists Influenza Vaccine (Season Ended) 2025 07/16/2022, 08/13/2021, 07/17/2020, Additional history exists Hemoglobin A1C 04/07/2025 10/05/2024, 06/04, 11/26/2023, Additional history exists Albumin Creatinine Ratio, Urine 10/05/2025 10/05/2024, 11/26/2023, 09/02/2022, Additional history exists Foot Exam 10/05/2025 10/05/2024, 07/03, 03/13/2022, Additional history exists Lipid Panel 10/05/2025 10/05/2024, 11/02, 11/14/2022, Additional history exists eGFR 10/05/2025 10/05/2024, 11/02, 11/14/2022, Additional history exists Dilated Eye Exam 06/28/2026 06/28/2024, 09/2022, 12/26/2021, Additional history exists Pneumococcal vaccine 65+ Completed 01/20/2020, 05/03 Hepatitis C Screening Completed 11/14/2022 Procedures Procedure Name Priority Date/Time Associated Diagnosis Comments EGFR Routine 10/05/2024 2:25 PM OBSTETRICIAN AND GYNAECOLOGIST Type 2 diabetes mellitus with hyperglycemia, with long-term current use of insulin (HCC) ALBUMIN CREATININE RATIO, URINE Routine 10/05/2024 2:25 PM OBSTETRICIAN AND GYNAECOLOGIST Type 2 diabetes mellitus with hyperglycemia, with long-term current use of insulin (HCC) COMPREHENSIVE METABOLIC PANEL Routine 10/05/2024 2:25 PM OBSTETRICIAN AND GYNAECOLOGIST Type 2 diabetes mellitus with hyperglycemia, with long-term current use of insulin (HCC) LIPID PANEL Routine 10/05/2024 2:25 PM OBSTETRICIAN AND GYNAECOLOGIST Type 2 diabetes mellitus with hyperglycemia, with long-term current use of insulin (HCC) Hyperlipidemia associated with type 2 diabetes mellitus (HCC) TSH Routine 10/05/2024 2:25 PM OBSTETRICIAN AND GYNAECOLOGIST Acquired hypothyroidism T4, FREE Routine 10/05/2024 2:25 PM OBSTETRICIAN AND GYNAECOLOGIST Acquired hypothyroidism POCT GLUCOSE Routine 10/05/2024 1:37 PM OBSTETRICIAN AND GYNAECOLOGIST Type 2 diabetes mellitus with hyperglycemia, with long-term current use of insulin (HCC) POCT HEMOGLOBIN A1C Routine 10/05/2024 1 :37 PM OBSTETRICIAN AND GYNAECOLOGIST Type 2 diabetes mellitus with hyperglycemia, with long-term current use of insulin (HCC) HM DIABETES EYE EXAM Routine 06/28/2024 8:12 AM OBSTETRICIAN AND GYNAECOLOGIST HEPATITIS C ANTIBODY Routine 11/14/2022 8:15 AM CDT Healthcare maintenance SCREENING MAMMOGRAM W ELEAZAR Schedule Routine, Read Routine (OP Routine) 03/28/2022 DEXA AXIAL SKELETON BONE DENSITY 1 OR MORE SITES Schedule Routine, Read Routine (OP Routine) 08/21/2021 12:18 PM OBSTETRICIAN AND GYNAECOLOGIST Osteopenia, unspecified location Post-menopausal from Last 3 Months or Most Recently Relevant to Health Maintenance Results * eGFR (10/05/2024 2:25 PM OBSTETRICIAN AND GYNAECOLOGIST) eGFR 62 >=60 mL/min/1. 73 m2 Comment: [...] last reviewed 2021. Blood 10/05/2024 2:25 PM OBSTETRICIAN AND GYNAECOLOGIST 10/05/2024 9:36 PM OBSTETRICIAN AND GYNAECOLOGIST us Nathalieevette Zabala BROKERAGE CLERK LAB BLOOD ORDERABLES Myranda l Result Performing Organization Address [facility] Co de Phone Number RYAN [phone] [address] [facility] [place] [address] * Albumin Creatinine Ratio, Urine (10/05/2024 2:25 PM OBSTETRICIAN AND GYNAECOLOGIST) Albumin Ur <12.0 mg/L Comment: Interpretive Data No reference range established. Current interpretive data was last revised 2018. Creatinine Ur 92.5 mg/dL RYAN Comment: Interpretive Data No reference range established. Current interpretive data was last revised 2018. Albumin Creatinine Ratio, Ur <13 1 - 29 mg/g RYAN Urine 10/05/2024 2:25 PM OBSTETRICIAN AND GYNAECOLOGIST 10/05/2024 8:39 PM OBSTETRICIAN AND GYNAECOLOGIST us Nathalie Mono Zabala BROKERAGE CLERK LAB URINE ORDERABLES Myranda l Result Performing Organization Address [facility] de Phone Number RYAN BOSWELL [phone] [address] [facility] [place] [address] * (ABNORMAL) TSH (10/05/2024 2:25 PM OBSTETRICIAN AND GYNAECOLOGIST) Thyroid Stimulating Hormone 0.26(L) 0.30 - 4.20 mcIUnit/mL Blood 10/05/2024 2:25 PM OBSTETRICIAN AND GYNAECOLOGIST 10/05/2024 8:39 PM OBSTETRICIAN AND GYNAECOLOGIST us Nathalieevette Zabala BROKERAGE CLERK LAB BLOOD ORDERABLES Myranda l Result Performing Organization Address [facility] Co de Phone Number RYAN [phone] [address] [facility] [employer] [place] [address] * T4, free (10/05/2024 2:25 PM OBSTETRICIAN AND GYNAECOLOGIST) Free T4 1.50 0.90 - 1.70 ng/dL Blood 10/05/2024 2:25 PM OBSTETRICIAN AND GYNAECOLOGIST 10/05/2024 8:39 PM OBSTETRICIAN AND GYNAECOLOGIST us Nathalie Zabala BROKERAGE CLERK LAB BLOOD ORDERABLES Myranda l Result RYAN BOSWELL [id number] [address] Department [place] [address] * (ABNORMAL) Lipid panel (10/05/2024 2:25 PM OBSTETRICIAN AND GYNAECOLOGIST) Cholesterol 108 30 - 199 mg/dL Comment: [...] on 2018. Triglycerides 385(H) <=149 mg/dL RYAN BOSWELL Comment: Interpretive Data Ages < or = [...] on 2018. HDL 35(L) >=40 mg/dL RYAN BOSWELL Comment: Interpretive Data Ages < or = [...] 2018. LDL, calculated 20 <=129 mg/dL RYAN BOSWELL Comment: Interpretive Data Ages < or = [...] 3. Clay Thomas et al. [facility] Cardiol. 2019December 01;5(5):540-548. doi: 10.1001/[email or web address].2020.0013 Current Interpretive Data was last revised on 2024. Non-HDL Cholesterol 73 mg/dL RYAN Comment: Interpretive Data Ages < [...] last revised on 2018. Chol/HDL ratio 3 RYAN Blood 10/05/2024 2:25 PM OBSTETRICIAN AND GYNAECOLOGIST 10/05/2024 8:39 PM OBSTETRICIAN AND GYNAECOLOGIST us Nathalie Zabala BROKERAGE CLERK LAB BLOOD ORDERABLES Myranda hoff Result [facility] [id number] [address] Department [place] [address] * Comprehensive metabolic panel (10/05/2024 2:25 PM OBSTETRICIAN AND GYNAECOLOGIST) Sodium 140 135 - 145 mmol/L Potassium, pl 4.1 3.3 - 4.9 mmol/L [facility] Chloride 103 97 - 110 mmol/L [facility] CO2 24 22 - 32 mmol/L [facility] Anion gap 13 2 - 15 mmol/L [facility] BUN 15 6 - 25 mg/dL [facility] Creatinine 0.98 0.60 - 1.10 mg/dL [facility] Glucose 165 70 - 199 mg/dL [facility] Comment: Interpretive Data Fasting glucose >/= 126 [...] may be affected. Blood 10/05/2024 2:25 PM OBSTETRICIAN AND GYNAECOLOGIST 10/05/2024 8:39 PM OBSTETRICIAN AND GYNAECOLOGIST us Nathalie R. Schleeper BROKERAGE CLERK LAB BLOOD ORDERABLES Myranda l Result RYAN BOSWELL [id number] [address] Department [place] [address] * (ABNORMAL) POCT hemoglobin A1c (10/05/2024 1:37 PM OBSTETRICIAN AND GYNAECOLOGIST) Hemoglobin A1C, POC 6.6 4.0 - 5.6 % Blood 10/05/2024 1:37 PM OBSTETRICIAN AND GYNAECOLOGIST Nathalie Zabala NP POINT OF CARE TEST ORDERA BLES Final Result * (ABNORMAL) POCT glucose (10/05/2024 1:37 PM OBSTETRICIAN AND GYNAECOLOGIST) Glucose Blood, POC 169 mg/dL Blood 10/05/2024 1:37 PM OBSTETRICIAN AND GYNAECOLOGIST Nathalie Zabala NP POINT OF CARE TEST ORDERA BLES Final Result * DIABETES EYE EXAM (06/28/2024 8:12 AM OBSTETRICIAN AND GYNAECOLOGIST) Historical Provider HEALTH MAINTENANCE Final Result * [...] a test for HCV RNA (test code 89593) is suggested. For additional information please refer to http://education.500px.[employer]/faq/NID62k6 (This link is being provided for informational/ educational purposes only.) Blood 11/14/2022 8:15 AM CDT 11/14/2022 8:16 AM CDT Narrative [facility] - 11/20/2022 12:33 PM CDT FASTING:YES FASTING: YES Silvia Bland MD LAB MICROBIOLOGY - [facility] ORDERABLES Final Result [facility] [id number] [phone] * Screening Mammogram W Eleazar (03/28/2022) Anatomical Region Laterality Modality Breast N/A Mammography Historical Provider MD LINO MAMMO PROCEDURES Edit ed Result - Final * Dexa Axial Skeleton Bone Density 1 or 2 Site (08/21/2021 12:18 PM OBSTETRICIAN AND GYNAECOLOGIST) Anatomical Region Laterality Modality Body N/A Other 08/21/2021 1:21 PM OBSTETRICIAN AND GYNAECOLOGIST Narrative 08/21/2021 1:22 PM OBSTETRICIAN AND GYNAECOLOGIST EXAM DESCRIPTION: DEXA AXIAL SKELETON BONE DENSITY 1 OR MORE SITES REASON FOR STUDY: 65 y/o year old F with given history of screening. Cancer Registry Manager/Model: [employer] (S/N [id number]) CLINICAL INFORMATION: Current height: 63 inches Maximum [...] Viri Powers M.D. TB: TB Report ID: [id number] Reading Location: [facility] Procedure Note Viri Powers MD - 08/21/2021 EXAM DESCRIPTION: DEXA AXIAL SKELETON BONE DENSITY 1 OR MORE SITES REASON FOR STUDY: 65 y/o year old F with given history ofscreening. Cancer Registry Manager/Model: Written SL (S/N [id number]) CLINICAL INFORMATION: Current height: 63 inches Maximum [...] Viri Powers M.D. TB: TB Report ID: [id number] Reading Location: [facility] Silvia Bland MD IMG DXA PROCEDURES Fi nal Result from Last 3 Months or Most Recently Relevant to Health Maintenance Insurance [facility] MEDICARE ADVANTAGE [facility] MEDICARE ADVANTAGE Advance Directives For more information, please contact: [phone] * Full Code (Latest Code Status on File) Date Activated Date Inactivated Comments 11/01/2018 12:35 AM 11/01/2018 10:41 PM Care Teams Trapeze Performer Relationship Specialty Start Date End Date Silvia Bland MD [address] [facility] [address] [place] [id number] PCP - General Family Medicine 08/13/21
== END 2025-01-02 10:27 | disposition home or self-care (01) ==
DX: Z12.31 Encounter for screening mammogram for malignant neoplasm of breast (principal)
CPT/HCPCS: 77063; 77067